=== PATIENT | male | born 1965 | race Caucasian/White ===

== ENCOUNTER 2016-09-27 18:41 | Inpatient (IN) | payer MEDICARE, MEDICAID ==
[~2016-09-27] VITALS: Ht 170.2 cm; Wt 82.5 kg
[~2016-09-27 18:41] MED LIST: /LANS30GR; /THIA10TA; /TIOT18INH; ADV250INH INH; ADV500INH INH; ADVAIR; ADVAIR500 INHALATION; ALBU17IN INH; ALBU17IN2; ALBU17IN2 INH; ALBUTEROL INHALATION; AMO500 PO; ATENOL25 PO; ATOR1TAB19 PO; CELE100C; CLAR1TAB2 PO; CLAR5CHW; CLON-412 PO; CLONI1TA PO; COMBAER6 INH; DEPA1TAB3 PO; DEPA500T; DILAN100 PO; DIVA500T3 PO; DOCU10CA PO; DULC5TAB PO; DULE200A INH; DULO20CA; FOLI1TAB; FOLI1TAB2 PO; KLON0.5T; KLON1TAB; LAMI200T3 PO; LAMI25TA PO; LIPI20TA; LIPI20TA PO; LISI10TA4 PO; MULTLIQ7 PO; MYLATAB PO; NICO21PAT TD; NORC7.5T PO; OMEP40CA2 PO; OXAZ30CA2 PO; PHENERGA25 PO; PREV30CA11 PO; PREVACID30 PO; PRIL20CA PO; PROA1AER INH; SING10TA31; SING10TA32 PO; SYMB16INH INH; TAB-TAB PO; TENO50TA; THIA50CA PO; TIOT18INH INH; TRAZ50TA4 PO; TRAZO50TA PO; VICODIN PO; VICODIN-ES PO; VITA100T60 PO; XOPENEX63 NEB; ZEST1TAB6 PO; ZOCOR20 PO; ZOCOR40 PO; ZYPR10TA PO; clarinex
[2016-09-27 19:43] LABS: MEAN CORPUSCULAR HEMOGLOBIN 34.9 pg (27.0-33.0); MEAN CORPUSCULAR HGB CONC 34.8 g/dl (32.0-36.5); MEAN CORPUSCULAR VOLUME 100.5 fl (80.0-96.0); RED CELL DISTRIBUTION WIDTH 12.4 % (11.5-14.5); WHITE BLOOD COUNT 9.6 K/mm3 (4.0-10.0)
[2016-09-27 20:00] LABS: AMPHETAMINES LEVEL URINE NEGATIVE (NEGATIVE); BENZODIAZEPINES URINE NEGATIVE (NEGATIVE); COCAINE METABOLITE URINE NEGATIVE (NEGATIVE); CONTROL LINE INT CTR LINE PRESENT; METHADONE URINE NEGATIVE (NEGATIVE); OPIATES URINE NEGATIVE (NEGATIVE); TRICYCLIC ANTIDEPRESS URINE NEGATIVE (NEGATIVE)
[2016-09-27 20:11] LABS: ALBUMIN 3.6 GM/DL (3.2-5.2); ALBUMIN/GLOBULIN RATIO 1.09 (1.00-1.93); ALKALINE PHOSPHATASE 93 U/L (45-117); ALT/SGPT 20 U/L (12-78); ANION GAP 10 MEQ/L (8-16); AST/SGOT 13 U/L (15-37); BILIRUBIN,DIRECT < 0.1 MG/DL (0.0-0.2); BILIRUBIN,TOTAL 0.2 MG/DL (0.2-1.0); BLOOD UREA NITROGEN 12 MG/DL (7-18); CALCIUM LEVEL 8.4 MG/DL (8.5-10.1); CARBON DIOXIDE LEVEL 25 MEQ/L (21-32); CHLORIDE LEVEL 109 MEQ/L (98-107); CREATININE FOR GFR 0.83 MG/DL (0.70-1.30); GLOMERULAR FILTRATION RATE > 60.0 (>56); GLUCOSE, FASTING 95 MG/DL (70-105); POTASSIUM SERUM 4.4 MEQ/L (3.5-5.1); SODIUM LEVEL 144 MEQ/L (136-145); TOTAL PROTEIN 6.9 GM/DL (6.4-8.2)
[2016-09-28] MEDS ORDERED: ACETAMINOPHEN 325 MG TAB As Ordered ONE ×2 (04:09→04:12)
[2016-09-28] MEDS ORDERED: LORazepam 2 MG TAB PO PRN (04:15)
[2016-09-28] MEDS ORDERED: MAALOX 30 ML SUSP *UDC PO PRN (04:15)
[2016-09-28] MEDS ORDERED: MOM 30ML SUSPENSION UDC PO PRN (04:15)
--- NOTE | 2016-09-28 04:46 | EDDOCDS ---
Physician Documentation [facility] Name: Darrick Graves Age: 51 yrs Sex: Male : 1965 Arrival Date: 09/27/2016 Time: 18:41 Bed OBSERVATION Private MD: Disposition: 09/28/16 04:44 Hospitalization ordered by Russel Sloan for Inpatient Admission. Preliminary diagnosis is Major depressive disorder, single episode. - Bed requested for Admit. - Status is Inpatient Admission. slm - Condition is Stable. - Problem is an ongoing problem. - Symptoms are unchanged. Historical: - Allergies: Aspirin (severe cramps); bupropion HCl (Seizures); Codeine Sulfate (Upset stomach); GABAPENTIN (passes out); Remeron (n/v); Rofecoxib; Toradol (diarrhea); Ultram (Seizures); - Home Meds: 1. lisinopril 10 mg Oral tab 1 tab once daily 2. clonidine HCl 0.1 mg Oral tab 1 tab 3 times per day 3. Depakote 500 mg Oral TbEC 1 tab 2 times per day 4. montelukast 10 mg oral tab 1 tab once daily 5. Claritin 10 mg Oral tab 1 tab once daily 6. Prilosec 20 mg Oral cpDR 2 caps once daily 7. atorvastatin 10 mg oral tab 1 tab once daily 8. dulera 200 mcg/5mcg 2 puff twice a day 9. Lamictal 25 mg Oral tab daily 10. Trazodone Oral 1 tab once daily - PMHx: Allergies, Seasonal; Anxiety; Asthma; Bipolar disorder; chronic neck and back pain; COPD; Depression; Hypertension; Seizure Disorder; - PSHx: Cholecystectomy; left tib fib repair; - Social history: Smoking status: Patient uses tobacco products, heavy tobacco smoker. No barriers to communication noted, The patient speaks fluent Albanian, Speaks appropriately for age. - Family history: Not pertinent. - : The pt / caregiver states he / she is not on anticoagulants. Home medication list is obtained from the patient. - Exposure Risk Screening:: None identified. Vital Signs: 09/27 19:00 Weight 82.55 kg / 181.99 lbs; Height 5 ft. 7 in. (170.18 cm); pml 20:02 BP 101 / 58; Pulse 79; Resp 18; Temp 96.6(O); Pulse Ox 97% on R/A; Pain 5/10; mdr 09/28 04:07 BP 144 / 67; Pulse 73; Resp 18; Temp 97.1; Pulse Ox 97% ; Pain 8/10; slm 09/27 19:00 Body Mass Index 28.50 (82.55 kg, 170.18 cm) pml MDM: 09/27 18:57 Consult PFS/PSA/Sociology Teacher ordered. cs11 19:17 Consult PFS/PSA/Sociology Teacher: Patient's case requires discussion with on-call cs11 Psychiatrist ordered. 19:17 PSA/PFS to call Nursing Code Enforcement Officer, to enter patient data on [place] Safe Act if patient cs11 involuntarily admitted or transferred for SI or HI ordered. 19:17 Confirm accurate psychiatric medication list and times of last dosage ordered. cs11 19:17 Detain Pt Until Medically/PFS Cleared ordered. cs11 19:18 Acetaminophen Level Ordered. EDMS 19:18 Basic Metabolic Profile Ordered. EDMS 19:18 Complete Blood Count Ordered. EDMS 19:18 Drug Eval Toxicology ED Only Ordered. EDMS 19:18 Ethyl Alcohol (ethanol) Ordered. EDMS 19:18 Liver Profile Ordered. EDMS 19:18 Salicylate Level Ordered. EDMS 19:18 Thyroid Stimulating Hormone Ordered. EDMS 19:18 Ammonia (Little Green Tube on Ice, Not Pea Green) Ordered. EDMS 19:40 VALPROIC ACID (DEPAKOTE) Ordered. EDMS 19:57 Consult PFS/PSA/Sociology Teacher complete. 20:00 Financial registration complete. [email or web address] 20:01 [facility] Payment Agreement was scanned into [employer] and attached to record. [facility] 09/28 00:53 Acetaminophen Level Reviewed. cs11 00:53 Basic Metabolic Profile Reviewed. cs11 00:53 Complete Blood Count Reviewed. cs11 00:53 Drug Eval Toxicology ED Only Reviewed. cs11 00:53 Ethyl Alcohol (ethanol) Reviewed. cs11 00:53 Liver Profile Reviewed. cs11 00:53 Ammonia (Little Green Tube on Ice, Not Pea Green) Reviewed. cs11 00:53 VALPROIC ACID (DEPAKOTE) Reviewed. cs11 00:53 Salicylate Level Reviewed. cs11 00:53 Thyroid Stimulating Hormone Reviewed. cs11 04:05 Tylenol 975 mg PO once ordered. m 04:12 Consult PFS/PSA/Sociology Teacher: Patient's case requires discussion with on-call cl Psychiatrist complete. 04:12 PSA/PFS to call Nursing Code Enforcement Officer, to enter patient data [place] Safe Act if patient cl involuntarily admitted or transferred for SI or HI complete. 04:17 Admit to IM: ordered. EDMS 04:18 REGULAR DIET ordered. EDMS 04:32 [facility] Legal paperwork was scanned into [employer] and attached to record. cl 04:44 BED REQUEST+ADM ordered. EDMS Administered Medications: 04:14 Drug: Tylenol 975 mg Route: PO; slm Signatures: Dispatcher [employer] EDMS Javid Contreras, MEAGAN PSA cl Darline Schreiber,RN RN Ronny Landaverde, DO cs11 Megan Blancas LPN LPN [facility] Asuncion Garcia, Reg Reg [email or web address] The chart was reviewed and I authenticate all verbal orders and agree with the evaluation and treatment provided.Corrections: (The following items were deleted from the chart) 09/27 19:39 19:18 VALPROIC ACID (DEPAKOTE)+LAB ordered. EDMS EDMS Attachments: 20:01 [facility] Payment Agreement [email or web address] MTDD
--- NOTE | 2016-09-28 04:47 | EDDOCDS ---
Nurse's Notes [facility] Name: Darrick Graves Age: 51 yrs Sex: Male : 1965 Arrival Date: 09/27/2016 Time: 18:41 Bed OBSERVATION Private MD: Diagnosis: Major depressive disorder, single episode Presentation: 09/27 18:57 Presenting complaint: Patient states: "I want to kill myself" states SI with plan to OD pml on blood pressure meds. Mental Health Triage Level: Level 2: The patient displays active suicidal ideations. The patient was brought to the ED for evaluation because of a legal pickup order. Adult Sepsis Screening: The patient does not have new or worsening altered mentation. Patient's respiratory rate is less than 22. Systolic blood pressure is greater than 100. Patient has a qSOFA score of 0- Negative Sepsis Screen. Suicide/Homicide risk assessment- The patient admits to and/or has been reported to be having suicidal ideations. The patient reports that he/she has been admitted to an inpatient mental health facility in the last 30 days. The patient reports that he/she has a recent or current history of substance abuse. The patient reports that he/she has a prior history of suicide attempt and/or organized plan. The patient reports that he/she has experienced a significant life altering event in the last 30 days. The patient reports that he/she has adequate social support. The patient reports he/she has significant chronic medical condition(s). Status: Patient is not a floor service worker spring or dependent. Transition of care: patient was not received from another setting of care. 18:57 Acuity: HOANG Level 3 pml 18:57 Method Of Arrival: Ambulance pml Triage Assessment: 19:00 General: Appears in no apparent distress, Behavior is appropriate for age, cooperative. pml Pain: Location: left leg. HIV screening NA for this visit Offered previously. The patient is triaged at the bedside. See Assessment in Nurses Notes section of ED record. Neurological: Level of Consciousness is awake, alert, Oriented to person, place, time. Cardiovascular: Capillary refill < 3 seconds. Respiratory: Airway is patent Respiratory effort is even, unlabored. GI: Abdomen is non- distended obese. Derm: Skin is pink, warm & dry. Historical: - Allergies: Aspirin (severe cramps); bupropion HCl (Seizures); Codeine Sulfate (Upset stomach); GABAPENTIN (passes out); Remeron (n/v); Rofecoxib; Toradol (diarrhea); Ultram (Seizures); - Home Meds: 1. lisinopril 10 mg Oral tab 1 tab once daily 2. clonidine HCl 0.1 mg Oral tab 1 tab 3 times per day 3. Depakote 500 mg Oral TbEC 1 tab 2 times per day 4. montelukast 10 mg oral tab 1 tab once daily 5. Claritin 10 mg Oral tab 1 tab once daily 6. Prilosec 20 mg Oral cpDR 2 caps once daily 7. atorvastatin 10 mg oral tab 1 tab once daily 8. dulera 200 mcg/5mcg 2 puff twice a day 9. Lamictal 25 mg Oral tab daily 10. Trazodone Oral 1 tab once daily - PMHx: Allergies, Seasonal; Anxiety; Asthma; Bipolar disorder; chronic neck and back pain; COPD; Depression; Hypertension; Seizure Disorder; - PSHx: Cholecystectomy; left tib fib repair; - Social history: Smoking status: Patient uses tobacco products, heavy tobacco smoker. No barriers to communication noted, The patient speaks fluent Wolof, Speaks appropriately for age. - Family history: Not pertinent. - : The pt / caregiver states he / she is not on anticoagulants. Home medication list is obtained from the patient. - Exposure Risk Screening:: None identified. Screenin:49 Screening information is obtained from the patient. Fall risk: At risk due to gait slm disturbance. Assistance ADL's: requires no assistance with activities of daily living. Abuse/DV Screen: The patient / caregiver reports he/she is: not in a situation that causes fear, pain or injury. Nutritional screening: No deficits noted. home support is inadequate. 09/28 04:34 Fall risk: The following interventions are performed due to a positive Fall Risk slm Screen: Fall Risk is added to Special Handling on the patient Summary Screen. A Fall Risk Bracelet was applied to the patient. Side Rails are placed in the up position. A Call Arnold is given with instruction to call for help when getting out of bed. Advance Directives: Currently, there is no health care proxy. There is no active DNR order. There is no living will. There is no Power of Manager Of Compliance. Advance directive information has not previously been placed in an [facility] medical record. Further advance directive information is declined. Assessment: 09/27 19:48 General: Appears in no apparent distress, comfortable, Behavior is anxious. General: pt slm resting on stretcher anxious at time cast intact to left lower leg . Respiratory: Airway is patent Respiratory effort is even, unlabored. 20:31 General: Appears in no apparent distress, comfortable, Behavior is cooperative. slm General: pt resting on stretcher with eyes closed security observing safety maintained . Respiratory: Airway is patent Respiratory effort is even, unlabored. Derm: Skin is pink, warm & dry. 21:30 General: Appears in no apparent distress, comfortable, to be sleeping. Behavior is slm quiet. General: resting on stretcher security observing . Respiratory: Airway is patent Respiratory effort is even, unlabored. 22:12 General: Appears in no apparent distress, comfortable, to be sleeping. Behavior is slm cooperative. General: pt resting on stretcher safety maintained . Respiratory: Airway is patent Respiratory effort is even, unlabored. Derm: Skin is pink, warm & dry. 23:23 General: Appears in no apparent distress, comfortable, to be sleeping. Behavior is slm quiet. General: resting on stretcher security observing . Respiratory: No deficits noted. 09/28 00:15 General: Appears in no apparent distress, comfortable, to be sleeping. Behavior is slm quiet. General: pt resting on stretcher asleep security observing safety maintained . Respiratory: Airway is patent Respiratory effort is even, unlabored. 01:20 General: Appears in no apparent distress, comfortable, Behavior is cooperative. slm General: pt resting on stretcher awake at this time calm drinking fluids denies needs security observing . Neurological: Level of Consciousness is awake, alert, obeys commands. 01:58 General: Appears in no apparent distress, comfortable, to be sleeping. Behavior is slm cooperative, quiet. General: resting on stretcher security observing . Respiratory: Airway is patent Respiratory effort is even, unlabored. 03:00 General: Appears in no apparent distress, comfortable, to be sleeping. Behavior is slm cooperative. General: security observing . Respiratory: Airway is patent Respiratory effort is even, unlabored. Derm: Skin is pink, warm & dry. 04:05 General: Appears in no apparent distress, comfortable, Behavior is cooperative. slm General: pt resting on stretcher request box lunch c/o pain left leg 05/08 pain meds provided will cont to monitor pts pain . Pain: Location: left leg Pain currently is 8 out of 10 on a pain scale. Neurological: Level of Consciousness is awake, alert, obeys commands, Oriented to person, place, time. Respiratory: Airway is patent Respiratory effort is even, unlabored. Derm: Skin is pink, warm & dry. 04:34 Reassessment: Patient appears in no apparent distress at this time. General: Behavior slm is cooperative. Respiratory: Airway is patent Respiratory effort is even, unlabored. Mental Health Eval: 02:49 Status: The patient is not a floor service worker spring or dependent. [facility] cl Behavioral Health: The patient is not an established patient of [facility] Behavioral Health. Referral Information: Evaluation referral is generated by a police agency: [place]ICO[place] on .. The patient was referred for evaluation because [facility] ED issued after pt called ED stating SI with plan to OD.. Subjective: The patients chief complaint is Pt is A&Ox3, clinically sober, reports feeling increasingly depressed in past weeks due to several family deaths recently as well as cast on leg due to recent fx. Pt c/o inability to "do anything", "I can't go out, can't cook, can't do anything and I just want to end it". Pt well known from prior ED contacts and psych admissions, pt denies HI/AH/VH, has hx of substance abuse, was intoxicated on arrival to ED last evening. Pt in no current outpt tx, states "I have appt.'s in September" though is vague about this, has hx of non-compliance as well. Pt continues to voice SI with plan to take overdose, cannot CFS at this time. . Delusions are denied. Patient's mood is dysthymic, irritable, Hallucinations are denied. Mental Health history: alcohol abuse, Bipolar Disorder, depression, abusing prescription drugs. marijuana. suicide attempt by by OD in past. Mental Health Admissions: multiple to [facility], last 09/05/16. Current Outpatient Mental Health Services: None. Current living environment is The patient currently lives alone. The patient is . Patient presents to Emergency Department with the following symptoms within the past 2 weeks: alcohol abuse, depressed mood, feelings of helplessness/hopelessness, non-compliance, pain, acute, sleep disturbance - erratic suicidal ideation with plan for pills. Mental status exam: Patients appearance is disheveled Patient's behavior is superficially cooperative Speech is normal. Affect is restricted. Mood is dysphoric. irritable. Hallucinations are denied. Appetite is erratic Memory is fair. Energy level is tires easily. Content of thought is depressive. depressive Thought process is intact. Cognitive level is oriented to person, place, time and situation Patient's insight is fair. Judgement is fair. Rapport with interviewer is guarded. Suicidal Ideation present with a plan to kill self by pills. Homicidal ideation is not present. 04:06 Disposition: Medically cleared for disposition by Ronny Yo DO Psychiatric Consult cl is performed by phone with Dr Russel Sloan. 04:09 [facility] Admission Criteria: The patient is experiencing suicidal ideation. The patient cl displays symptoms of severe psychiatric disorder resulting in disordered behavior and significant interference with his / her ability to maintain self care. Psychomotor Retardation. The patient requires continuous observation and/or control to protect self, others or property. The patient's care requires a multi-modal treatment plan under close supervision and coordination due to the complexity and severity of the patient's symptoms. Legal Status: Patient's legal status will be Emergency admission: 9.39. [place] because patient was registered less than 6 months ago. DSM-V Differential Diagnosis: Unspecified Depressive Disorder (F32.9). Insurance Pre-Certification: Not Required. Family Notification: Notification to family of patient status is not currently needed or appropriate. Awaiting: transfer to [facility]. Social Work Consult: 09/27 18:51 Social Work Note: Pt called this copywriter on our main line, at 17:20. Pt reported cs drinking, has a History of suicide attempts, "had nothing to live for, had been drinking today, nobody cares if he is alive, wants to , plan OD on Depakote and high blood pressure medications, If my sister had not taken my guns, I would be using one of them right now, broke my ankle, can't do anything for 4 months, want live this way, I am , my whole family has on me the past 7 years, My Gladys January 09 2013, my love of my life, I don't want to live without her anymore, helpless and hopeless, I want to " then hung up on this copywriter at 17:45, after giving me his name and age. PSA had help to call 911 , issued a 9:45 filler pick[address] order with Dr. Ricks , pt presented on the phone tearful and intoxicated, presented to ED with NICOLE Navarro, #[id number]. Vital Signs: 19:00 Weight 82.55 kg; Height 5 ft. 7 in. (170.18 cm); pml 20:02 BP 101 / 58; Pulse 79; Resp 18; Temp 96.6(O); Pulse Ox 97% on R/A; Pain 5/10; mdr 09/28 04:07 BP 144 / 67; Pulse 73; Resp 18; Temp 97.1; Pulse Ox 97% ; Pain 8/10; slm 09/27 19:00 Body Mass Index 28.50 (82.55 kg, 170.18 cm) [facility] Vitals: 09/27 19:00 Log In Time N/A - ambulance arrival. [facility] ED Course: 18:42 Patient visited by Almita Galvez. gjb 18:42 Patient moved to Waiting gjb 18:48 Patient moved to [facility] pjf 18:56 Pt greeted and oriented to ED. Patient advised of names of staff involved in care, pjf location of call arnold, wait times and NPO status. Accompanied by Law Enforcement, nicole - (9.45), Patient has correct armband on for positive identification. Placed in psych safe attire. Bed in low position. Call light in reach. Side rails up X 1. Security observing. Property removed, secured in belongings bag- Placed in locker #3. Door closed. Noise minimized. Visitors limited. Report received from rn - psych. triage level #2, +si, +etoh, agitated, cooperative \\T\\ this time. The patient / caregiver is instructed regarding the plan of care and ED course. Psych Safety Check: Location: Psych Room. 18:57 Ronny Yo DO is Attending Physician. cs11 18:57 Patient visited by Ronny Yo DO. cs11 18:58 Triage Initiated pml 19:01 Patient visited by Frank Fontanez Security Aide. pjf 19:17 Patient moved to OBSERVATION cs 19:25 Patient visited by Heath Traylor PCA. mdr 19:48 Megan Blancas LPN is Primary Nurse. slm 19:49 Patient visited by Heath Traylor PCA. mdr 19:50 No IV's were initiated during this patient's visit. No procedures done that require slm assistance. Labs drawn. (by ED staff). Sent per order to lab. Urine collected. Urine specimen sent to lab. 19:57 VALPROIC ACID (DEPAKOTE) Sent. slm 20:01 [facility] Payment Agreement was scanned into [employer] and attached to record. ks16 20:03 Patient visited by Heath Traylor PCA. mdr 20:23 Patient visited by Heath Traylor PCA. mdr 20:31 Patient visited by Heath Traylor PCA. mdr 20:35 Patient visited by Megan Blancas LPN. slm 22:03 Patient visited by Megan Blancas LPN. slm 22:13 Patient visited by Megan Blancas LPN. slm 22:23 Patient visited by Heath Traylor PCA. mdr 22:42 Patient visited by Heath Traylor PCA. mdr 23:24 Patient visited by Megan Blancas LPN. slm 09/28 00:16 Patient visited by Megan Blancas LPN. slm 01:21 Patient visited by Megan Blancas LPN. slm 01:59 Patient visited by Megan Blancas LPN. slm 03:55 Patient visited by Megan Blancas LPN. slm 04:32 [facility] Legal paperwork was scanned into [employer] and attached to record. cl 04:35 Patient visited by Megan Blancas LPN. slm 04:43 Russel Sloan is Hospitalizing Provider. cs11 Administered Medications: 04:14 Drug: Tylenol 975 mg Route: PO; slm Attachments: 09/28 04:32 [facility] Legal paperwork cl Order Results: Lab Order: Acetaminophen Level; SPEC'M 09/27/16 19:32 Test: ACETAMINOPHEN LEVEL; Value: < 2.0; Range: 10.0-30.0; Abnormal: Below low normal; Units: UG/ML; Status: F Lab Order: Basic Metabolic Profile; SPEC'M 09/27/16 19:32 Test: GLUCOSE, FASTING; Value: 95; Range: 70-105; Units: MG/DL; Status: F Test: BLOOD UREA NITROGEN; Value: 12; Range: 7-18; Units: MG/DL; Status: F Test: CREATININE FOR GFR; Value: 0.83; Range: 0.70-1.30; Units: MG/DL; Status: F Test: GLOMERULAR FILTRATION RATE; Value: > 60.0; Range: >56; Status: F Test: SODIUM LEVEL; Value: 144; Range: 136-145; Units: MEQ/L; Status: F Test: POTASSIUM SERUM; Value: 4.4; Range: 3.5-5.1; Units: MEQ/L; Status: F Test: CHLORIDE LEVEL; Value: 109; Range: 98-107; Abnormal: Above high normal; Units: MEQ/L; Status: F Test: CARBON DIOXIDE LEVEL; Value: 25; Range: 21-32; Units: MEQ/L; Status: F Test: ANION GAP; Value: 10; Range: 8-16; Units: MEQ/L; Status: F Test: CALCIUM LEVEL; Value: 8.4; Range: 8.5-10.1; Abnormal: Below low normal; Units: MG/DL; Status: F Test Note: ; Units are mL/min/1.73 m2 Chronic Kidney Disease Staging per NKF: Stage I & II GFR >=60 Normal to Mildly Decreased Stage III GFR 30-59 Moderately Decreased Stage IV GFR 15-29 Severely Decreased Stage V GFR <15 Very Little GFR Left ESRD GFR <15 on BATH STEWARD/STEWARDESS Lab Order: Complete Blood Count; SPEC'M 09/27/16 19:32 Test: WHITE BLOOD COUNT; Value: 9.6; Range: 4.0-10.0; Units: K/mm3; Status: F Test: RED BLOOD COUNT; Value: 4.37; Range: 4.30-6.10; Units: M/mm3; Status: F Test: HEMOGLOBIN; Value: 15.3; Range: 14.0-18.0; Units: g/dl; Status: F Test: HEMATOCRIT; Value: 43.9; Range: 42.0-52.0; Units: %; Status: F Test: MEAN CORPUSCULAR VOLUME; Value: 100.5; Range: 80.0-96.0; Abnormal: Above high normal; Units: fl; Status: F Test: MEAN CORPUSCULAR HEMOGLOBIN; Value: 34.9; Range: 27.0-33.0; Abnormal: Above high normal; Units: pg; Status: F Test: MEAN CORPUSCULAR HGB CONC; Value: 34.8; Range: 32.0-36.5; Units: g/dl; Status: F Test: RED CELL DISTRIBUTION WIDTH; Value: 12.4; Range: 11.5-14.5; Units: %; Status: F Test: PLATELET COUNT, AUTOMATED; Value: 283; Range: 150-450; Units: k/mm3; Status: F Lab Order: Drug Eval Toxicology ED Only; SPEC'M 09/27/16 19:32 Test: AMPHETAMINES LEVEL URINE; Value: NEGATIVE; Range: NEGATIVE; Status: F Test: BARBITURATES URINE; Value: NEGATIVE; Range: NEGATIVE; Status: F Test: BENZODIAZEPINES URINE; Value: NEGATIVE; Range: NEGATIVE; Status: F Test: CANNABINOIDS URINE; Value: POSITIVE; Range: NEGATIVE; Abnormal: Above high normal; Status: F Test: COCAINE METABOLITE URINE; Value: NEGATIVE; Range: NEGATIVE; Status: F Test: METHADONE URINE; Value: NEGATIVE; Range: NEGATIVE; Status: F Test: OPIATES URINE; Value: NEGATIVE; Range: NEGATIVE; Status: F Test: TRICYCLIC ANTIDEPRESS URINE; Value: NEGATIVE; Range: NEGATIVE; Status: F Test Note: ; FALSE POSITIVE RESULTS CAN BE CAUSED BY THE USE OF PANTOPRAZOLE (PROTONIX). Lab Order: Ethyl Alcohol (ethanol); SPEC'M 09/27/16 19:32 Test: ETHYL ALCOHOL (ETHANOL); Value: 0.220; Range: 0.000-0.010; Abnormal: Above high normal; Units: %; Status: F Lab Order: Liver Profile; SPEC'M 09/27/16 19:32 Test: AST/SGOT; Value: 13; Range: 15-37; Abnormal: Below low normal; Units: U/L; Status: F Test: ALT/SGPT; Value: 20; Range: 12-78; Units: U/L; Status: F Test: ALKALINE PHOSPHATASE; Value: 93; Range: 45-117; Units: U/L; Status: F Test: BILIRUBIN,TOTAL; Value: 0.2; Range: 0.2-1.0; Units: MG/DL; Status: F Test: BILIRUBIN,DIRECT; Value: < 0.1; Range: 0.0-0.2; Units: MG/DL; Status: F Test: TOTAL PROTEIN; Value: 6.9; Range: 6.4-8.2; Units: GM/DL; Status: F Test: ALBUMIN; Value: 3.6; Range: 3.2-5.2; Units: GM/DL; Status: F Test: ALBUMIN/GLOBULIN RATIO; Value: 1.09; Range: 1.00-1.93; Status: F Lab Order: Salicylate Level; SPEC'M 09/27/16 19:32 Test: SALICYLATE LEVEL; Value: 5.3; Range: 5.0-30.0; Units: MG/DL; Status: F Lab Order: Thyroid Stimulating Hormone; SPEC' 09/27/16 19:32 Test: THYROID STIMULATING HORMONE; Value: 0.648; Range: 0.358-3.740; Units: uIU/ML; Status: F Lab Order: Ammonia ([place] Tube on Ice, Not [place]); SPEC'M 09/27/16 19:32 Test: AMMONIA; Value: 45; Range: <32; Abnormal: Above high normal; Units: uMOL/L; Status: F Lab Order: VALPROIC ACID (DEPAKOTE); SPEC'M 09/27/16 19:32 Test: VALPROIC ACID (DEPAKOTE); Value: 38.5; Range: 50.0-100.0; Abnormal: Below low normal; Units: UG/ML; Status: F Outcome: 09/27 20:34 No special radiology studies were completed. [facility] 09/28 04:34 Discharge Assessment: Patient awake, alert and oriented x 3. No cognitive and/or m functional deficits noted. Patient verbalized understanding of disposition instructions. patient administered narcotics - no. The following High Risk Discharge criteria are identified: None. Admitted to Psych accompanied by tech, via wheelchair, with chart. Condition: stable. 04:44 Decision to Hospitalize by Provider. cs11 04:45 Patient left the ED. [facility] Signatures: Javid Contreras PSA PSA Maged Stearns PSA PSA Frank Allen, Darline Clifton,RN RN Ronny Landaverde, DO cs11 Megan Blancas,ANDREA ALMEIDAN slm Heath Traylor, [facility] RESPIRATORY THERAPY MANAGER Almita Urbano Kimberly, Reg Reg [id number] MTDD
[2016-09-28 05:03] VITALS: BP 156/79
[2016-09-28] MEDS ORDERED: TRAZ50TA4 PO (05:26)
[2016-09-28] MEDS ORDERED: HYDR1TAB97 PO (05:26)
[2016-09-28] MEDS ORDERED: DEPA1TAB3 PO (05:26)
[2016-09-28] MEDS ORDERED: CLAR10CA3 PO (05:26)
[2016-09-28] MEDS ORDERED: LAMI25TA PO (05:26)
[2016-09-28] MEDS: THIAMINE 100 MG TAB PO SCH ×2 (09:52→20:36)
[2016-09-28] MEDS: NICOTINE 21MG/24HR 1 EA TRANSDERMAL TD SCH (09:52)
[2016-09-28] MEDS: MULTIVITAMINS/MINERALS THERAP 1 TAB PO SCH (09:52)
[2016-09-28] MEDS: FOLIC ACID 1 MG TAB PO SCH (09:52)
[2016-09-28] MEDS: DIVALPROEX 500MG *ER* TAB PO SCH ×2 (10:53→20:36)
[2016-09-28] MEDS: FLUoxetine 10 MG CAP PO SCH (10:53)
[2016-09-28] MEDS: lamoTRIgine 25 MG TAB PO SCH ×2 (10:54→20:36)
[2016-09-28 11:03] VITALS: BP 147/72
[2016-09-28 12:30] VITALS: BP 142/72
[2016-09-28 18:00] VITALS: BP 132/82
[2016-09-28] MEDS: traZODone 50 MG TAB PO PRN (20:36)
[2016-09-28] MEDS: hydrOXYzine 50 MG TAB PO PRN (20:36)
[2016-09-29 06:25] VITALS: BP 153/94
[2016-09-29] MEDS: MULTIVITAMINS/MINERALS THERAP 1 TAB PO SCH (08:55)
[2016-09-29] MEDS: lamoTRIgine 25 MG TAB PO SCH ×2 (08:55→20:01)
[2016-09-29] MEDS: DIVALPROEX 500MG *ER* TAB PO SCH ×2 (08:55→20:01)
[2016-09-29] MEDS: NICOTINE 21MG/24HR 1 EA TRANSDERMAL TD SCH (08:55)
[2016-09-29] MEDS: FOLIC ACID 1 MG TAB PO SCH (08:55)
[2016-09-29] MEDS: FLUoxetine 10 MG CAP PO SCH (08:55)
[2016-09-29] MEDS: THIAMINE 100 MG TAB PO SCH ×2 (08:55→20:01)
[2016-09-29 11:35] VITALS: BP 132/86
[2016-09-29 12:00] VITALS: BP 132/86
[2016-09-29] MEDS: LISINOPRIL 10 MG TAB PO SCH (12:06)
[2016-09-29] MEDS: MONTELUKAST 10 MG TAB PO SCH (12:06)
[2016-09-29] MEDS: cloNIDine 0.1 MG TAB PO SCH ×3 (12:06→20:01)
[2016-09-29] MEDS: NORCO, ANEXSIA 5/325MG TABLET (HYDROcodone/ACETAMINOPHEN) PO PRN ×2 (14:20→20:03)
[2016-09-29 16:20] VITALS: BP 133/76
[2016-09-29 18:00] VITALS: BP 132/76
[2016-09-29 20:00] VITALS: BP 131/73
[2016-09-29] MEDS ORDERED: ALBUTEROL 90 MCG/ACT 8GM HFA INHALER INH PRN (20:00)
[2016-09-29] MEDS: ADVAIR HFA 115/21 INHALER INH SCH (20:01)
[2016-09-29] MEDS: ATORVASTATIN 10 MG TAB PO SCH (22:09)
[2016-09-30] MEDS: traZODone 50 MG TAB PO PRN
[2016-09-30] MEDS: NORCO, ANEXSIA 5/325MG TABLET (HYDROcodone/ACETAMINOPHEN) PO PRN ×5 (05:14→23:23)
--- NOTE | 2016-09-30 05:46 | EDDOCDS ---
Physician Documentation [facility] Name: Darrick Graves Age: 51 yrs Sex: Male : 1965 Arrival Date: 09/27/2016 Time: 18:41 Bed OBSERVATION Private MD: Disposition: 09/28/16 04:44 Hospitalization ordered by Russel Sloan for Inpatient Admission. Preliminary diagnosis is Major depressive disorder, single episode. - Bed requested for Admit. - Status is Inpatient Admission. slm - Condition is Stable. - Problem is an ongoing problem. - Symptoms are unchanged. Historical: - Allergies: Aspirin (severe cramps); bupropion HCl (Seizures); Codeine Sulfate (Upset stomach); GABAPENTIN (passes out); Remeron (n/v); Rofecoxib; Toradol (diarrhea); Ultram (Seizures); - Home Meds: 1. lisinopril 10 mg Oral tab 1 tab once daily 2. clonidine HCl 0.1 mg Oral tab 1 tab 3 times per day 3. Depakote 500 mg Oral TbEC 1 tab 2 times per day 4. montelukast 10 mg oral tab 1 tab once daily 5. Claritin 10 mg Oral tab 1 tab once daily 6. Prilosec 20 mg Oral cpDR 2 caps once daily 7. atorvastatin 10 mg oral tab 1 tab once daily 8. dulera 200 mcg/5mcg 2 puff twice a day 9. Lamictal 25 mg Oral tab daily 10. Trazodone Oral 1 tab once daily - PMHx: Allergies, Seasonal; Anxiety; Asthma; Bipolar disorder; chronic neck and back pain; COPD; Depression; Hypertension; Seizure Disorder; - PSHx: Cholecystectomy; left tib fib repair; - Social history: Smoking status: Patient uses tobacco products, heavy tobacco smoker. No barriers to communication noted, The patient speaks fluent Czech, Speaks appropriately for age. - Family history: Not pertinent. - : The pt / caregiver states he / she is not on anticoagulants. Home medication list is obtained from the patient. - Exposure Risk Screening:: None identified. Vital Signs: 09/27 19:00 Weight 82.55 kg / 181.99 lbs; Height 5 ft. 7 in. (170.18 cm); pml 20:02 BP 101 / 58; Pulse 79; Resp 18; Temp 96.6(O); Pulse Ox 97% on R/A; Pain 5/10; mdr 09/28 04:07 BP 144 / 67; Pulse 73; Resp 18; Temp 97.1; Pulse Ox 97% ; Pain 8/10; slm 09/27 19:00 Body Mass Index 28.50 (82.55 kg, 170.18 cm) pml MDM: 09/27 18:57 Consult PFS/PSA/Dividend Deposit Voucher Clerk ordered. cs11 19:17 Consult PFS/PSA/Dividend Deposit Voucher Clerk: Patient's case requires discussion with on-call cs11 Psychiatrist ordered. 19:17 PSA/PFS to call Nursing Utility Technician, to enter patient data on [place] Safe Act if patient cs11 involuntarily admitted or transferred for SI or HI ordered. 19:17 Confirm accurate psychiatric medication list and times of last dosage ordered. cs11 19:17 Detain Pt Until Medically/PFS Cleared ordered. cs11 19:18 Acetaminophen Level Ordered. EDMS 19:18 Basic Metabolic Profile Ordered. EDMS 19:18 Complete Blood Count Ordered. EDMS 19:18 Drug Eval Toxicology ED Only Ordered. EDMS 19:18 Ethyl Alcohol (ethanol) Ordered. EDMS 19:18 Liver Profile Ordered. EDMS 19:18 Salicylate Level Ordered. EDMS 19:18 Thyroid Stimulating Hormone Ordered. EDMS 19:18 Ammonia (Little Green Tube on Ice, Not Pea Green) Ordered. EDMS 19:40 VALPROIC ACID (DEPAKOTE) Ordered. EDMS 19:57 Consult PFS/PSA/Dividend Deposit Voucher Clerk complete. 20:00 Financial registration complete. [email or web address] 20:01 [facility] Payment Agreement was scanned into [employer] and attached to record. [facility] 09/28 00:53 Acetaminophen Level Reviewed. cs11 00:53 Basic Metabolic Profile Reviewed. cs11 00:53 Complete Blood Count Reviewed. cs11 00:53 Drug Eval Toxicology ED Only Reviewed. cs11 00:53 Ethyl Alcohol (ethanol) Reviewed. cs11 00:53 Liver Profile Reviewed. cs11 00:53 Ammonia (Little Green Tube on Ice, Not Pea Green) Reviewed. cs11 00:53 VALPROIC ACID (DEPAKOTE) Reviewed. cs11 00:53 Salicylate Level Reviewed. cs11 00:53 Thyroid Stimulating Hormone Reviewed. cs11 04:05 Tylenol 975 mg PO once ordered. m 04:12 Consult PFS/PSA/Dividend Deposit Voucher Clerk: Patient's case requires discussion with on-call cl Psychiatrist complete. 04:12 PSA/PFS to call Nursing Utility Technician, to enter patient data on [place] Safe Act if patient cl involuntarily admitted or transferred for SI or HI complete. 04:17 Admit to IM: ordered. EDMS 04:18 REGULAR DIET ordered. EDMS 04:32 MHE Legal paperwork was scanned into [employer] and attached to record. cl 04:44 BED REQUEST+ADM ordered. EDMS 08:07 T-Sheet-- Draft Copy was scanned into [employer] and attached to record. seh Administered Medications: 04:14 Drug: Tylenol 975 mg Route: PO; slm Signatures: Dispatcher [employer] EDMS Javid Contreras, MEAGAN PSA cl Darline Schreiber,NIXON RN Ronny Landaverde, DO cs11 Megan Blancas,POULTRY OFFAL ICER POULTRY OFFAL ICER [facility] Asuncion Garcia, Reg Reg [email or web address] Breanne Cottrell [employer] [employer] The chart was reviewed and I authenticate all verbal orders and agree with the evaluation and treatment provided.Corrections: (The following items were deleted from the chart) 09/27 19:39 19:18 VALPROIC ACID (DEPAKOTE)+LAB ordered. EDMS EDMS Attachments: 20:01 [facility] Payment Agreement [email or web address] 08:07 T-Sheet-- Draft Copy [employer] [place] Chart Complete MTDD
--- NOTE | 2016-09-30 05:46 | EDDOCDS ---
Nurse's Notes [facility] Name: Darrick Graves Age: 51 yrs Sex: Male : 1965 Arrival Date: 09/27/2016 Time: 18:41 Bed OBSERVATION Private MD: Diagnosis: Major depressive disorder, single episode Presentation: 09/27 18:57 Presenting complaint: Patient states: "I want to kill myself" states SI with plan to OD pml on blood pressure meds. Mental Health Triage Level: Level 2: The patient displays active suicidal ideations. The patient was brought to the ED for evaluation because of a legal pickup order. Adult Sepsis Screening: The patient does not have new or worsening altered mentation. Patient's respiratory rate is less than 22. Systolic blood pressure is greater than 100. Patient has a qSOFA score of 0- Negative Sepsis Screen. Suicide/Homicide risk assessment- The patient admits to and/or has been reported to be having suicidal ideations. The patient reports that he/she has been admitted to an inpatient mental health facility in the last 30 days. The patient reports that he/she has a recent or current history of substance abuse. The patient reports that he/she has a prior history of suicide attempt and/or organized plan. The patient reports that he/she has experienced a significant life altering event in the last 30 days. The patient reports that he/she has adequate social support. The patient reports he/she has significant chronic medical condition(s). Status: Patient is not a community service officer coordinator or dependent. Transition of care: patient was not received from another setting of care. 18:57 Acuity: HOANG Level 3 pml 18:57 Method Of Arrival: Ambulance pml Triage Assessment: 19:00 General: Appears in no apparent distress, Behavior is appropriate for age, cooperative. pml Pain: Location: left leg. HIV screening NA for this visit Offered previously. The patient is triaged at the bedside. See Assessment in Nurses Notes section of ED record. Neurological: Level of Consciousness is awake, alert, Oriented to person, place, time. Cardiovascular: Capillary refill < 3 seconds. Respiratory: Airway is patent Respiratory effort is even, unlabored. GI: Abdomen is non- distended obese. Derm: Skin is pink, warm & dry. Historical: - Allergies: Aspirin (severe cramps); bupropion HCl (Seizures); Codeine Sulfate (Upset stomach); GABAPENTIN (passes out); Remeron (n/v); Rofecoxib; Toradol (diarrhea); Ultram (Seizures); - Home Meds: 1. lisinopril 10 mg Oral tab 1 tab once daily 2. clonidine HCl 0.1 mg Oral tab 1 tab 3 times per day 3. Depakote 500 mg Oral TbEC 1 tab 2 times per day 4. montelukast 10 mg oral tab 1 tab once daily 5. Claritin 10 mg Oral tab 1 tab once daily 6. Prilosec 20 mg Oral cpDR 2 caps once daily 7. atorvastatin 10 mg oral tab 1 tab once daily 8. dulera 200 mcg/5mcg 2 puff twice a day 9. Lamictal 25 mg Oral tab daily 10. Trazodone Oral 1 tab once daily - PMHx: Allergies, Seasonal; Anxiety; Asthma; Bipolar disorder; chronic neck and back pain; COPD; Depression; Hypertension; Seizure Disorder; - PSHx: Cholecystectomy; left tib fib repair; - Social history: Smoking status: Patient uses tobacco products, heavy tobacco smoker. No barriers to communication noted, The patient speaks fluent Namibian, Speaks appropriately for age. - Family history: Not pertinent. - : The pt / caregiver states he / she is not on anticoagulants. Home medication list is obtained from the patient. - Exposure Risk Screening:: None identified. Screenin:49 Screening information is obtained from the patient. Fall risk: At risk due to gait slm disturbance. Assistance ADL's: requires no assistance with activities of daily living. Abuse/DV Screen: The patient / caregiver reports he/she is: not in a situation that causes fear, pain or injury. Nutritional screening: No deficits noted. home support is inadequate. 09/28 04:34 Fall risk: The following interventions are performed due to a positive Fall Risk slm Screen: Fall Risk is added to Special Handling on the patient Summary Screen. A Fall Risk Bracelet was applied to the patient. Side Rails are placed in the up position. A Call Arnold is given with instruction to call for help when getting out of bed. Advance Directives: Currently, there is no health care proxy. There is no active DNR order. There is no living will. There is no Power of Motor Pool Clerk. Advance directive information has not previously been placed in an [facility] medical record. Further advance directive information is declined. Assessment: 09/27 19:48 General: Appears in no apparent distress, comfortable, Behavior is anxious. General: pt slm resting on stretcher anxious at time cast intact to left lower leg . Respiratory: Airway is patent Respiratory effort is even, unlabored. 20:31 General: Appears in no apparent distress, comfortable, Behavior is cooperative. slm General: pt resting on stretcher with eyes closed security observing safety maintained . Respiratory: Airway is patent Respiratory effort is even, unlabored. Derm: Skin is pink, warm & dry. 21:30 General: Appears in no apparent distress, comfortable, to be sleeping. Behavior is slm quiet. General: resting on stretcher security observing . Respiratory: Airway is patent Respiratory effort is even, unlabored. 22:12 General: Appears in no apparent distress, comfortable, to be sleeping. Behavior is slm cooperative. General: pt resting on stretcher safety maintained . Respiratory: Airway is patent Respiratory effort is even, unlabored. Derm: Skin is pink, warm & dry. 23:23 General: Appears in no apparent distress, comfortable, to be sleeping. Behavior is slm quiet. General: resting on stretcher security observing . Respiratory: No deficits noted. 09/28 00:15 General: Appears in no apparent distress, comfortable, to be sleeping. Behavior is slm quiet. General: pt resting on stretcher asleep security observing safety maintained . Respiratory: Airway is patent Respiratory effort is even, unlabored. 01:20 General: Appears in no apparent distress, comfortable, Behavior is cooperative. slm General: pt resting on stretcher awake at this time calm drinking fluids denies needs security observing . Neurological: Level of Consciousness is awake, alert, obeys commands. 01:58 General: Appears in no apparent distress, comfortable, to be sleeping. Behavior is slm cooperative, quiet. General: resting on stretcher security observing . Respiratory: Airway is patent Respiratory effort is even, unlabored. 03:00 General: Appears in no apparent distress, comfortable, to be sleeping. Behavior is slm cooperative. General: security observing . Respiratory: Airway is patent Respiratory effort is even, unlabored. Derm: Skin is pink, warm & dry. 04:05 General: Appears in no apparent distress, comfortable, Behavior is cooperative. slm General: pt resting on stretcher request box lunch c/o pain left leg 05/08 pain meds provided will cont to monitor pts pain . Pain: Location: left leg Pain currently is 8 out of 10 on a pain scale. Neurological: Level of Consciousness is awake, alert, obeys commands, Oriented to person, place, time. Respiratory: Airway is patent Respiratory effort is even, unlabored. Derm: Skin is pink, warm & dry. 04:34 Reassessment: Patient appears in no apparent distress at this time. General: Behavior slm is cooperative. Respiratory: Airway is patent Respiratory effort is even, unlabored. Mental Health Eval: 02:49 Status: The patient is not a community service officer coordinator or dependent. [facility] cl Behavioral Health: The patient is not an established patient of [facility] Behavioral Health. Referral Information: Evaluation referral is generated by a police agency: NICOLE on .. The patient was referred for evaluation because [facility] ED issued after pt called ED stating SI with plan to OD.. Subjective: The patients chief complaint is Pt is A&Ox3, clinically sober, reports feeling increasingly depressed in past weeks due to several family deaths recently as well as cast on leg due to recent fx. Pt c/o inability to "do anything", "I can't go out, can't cook, can't do anything and I just want to end it". Pt well known from prior ED contacts and psych admissions, pt denies HI/AH/VH, has hx of substance abuse, was intoxicated on arrival to ED last evening. Pt in no current outpt tx, states "I have appt.'s in September" though is vague about this, has hx of non-compliance as well. Pt continues to voice SI with plan to take overdose, cannot CFS at this time. . Delusions are denied. Patient's mood is dysthymic, irritable, Hallucinations are denied. Mental Health history: alcohol abuse, Bipolar Disorder, depression, abusing prescription drugs. marijuana. suicide attempt by by OD in past. Mental Health Admissions: multiple to [facility], last 09/05/16. Current Outpatient Mental Health Services: None. Current living environment is The patient currently lives alone. The patient is . Patient presents to Emergency Department with the following symptoms within the past 2 weeks: alcohol abuse, depressed mood, feelings of helplessness/hopelessness, non-compliance, pain, acute, sleep disturbance - erratic suicidal ideation with plan for pills. Mental status exam: Patients appearance is disheveled Patient's behavior is superficially cooperative Speech is normal. Affect is restricted. Mood is dysphoric. irritable. Hallucinations are denied. Appetite is erratic Memory is fair. Energy level is tires easily. Content of thought is depressive. depressive Thought process is intact. Cognitive level is oriented to person, place, time and situation Patient's insight is fair. Judgement is fair. Rapport with interviewer is guarded. Suicidal Ideation present with a plan to kill self by pills. Homicidal ideation is not present. 04:06 Disposition: Medically cleared for disposition by Ronny Yo DO Psychiatric Consult cl is performed by phone with Dr Russel Sloan. 04:09 [facility] Admission Criteria: The patient is experiencing suicidal ideation. The patient cl displays symptoms of severe psychiatric disorder resulting in disordered behavior and significant interference with his / her ability to maintain self care. Psychomotor Retardation. The patient requires continuous observation and/or control to protect self, others or property. The patient's care requires a multi-modal treatment plan under close supervision and coordination due to the complexity and severity of the patient's symptoms. Legal Status: Patient's legal status will be Emergency admission: 9.39. [place] Safe Act[place] is not applicable because patient was registered less than 6 months ago. DSM-V Differential Diagnosis: Unspecified Depressive Disorder (F32.9). Insurance Pre-Certification: Not Required. Family Notification: Notification to family of patient status is not currently needed or appropriate. Awaiting: transfer to [facility]. Social Work Consult: 09/27 18:51 Social Work Note: Pt called this health science writer on our main line, at 17:20. Pt reported cs drinking, has a History of suicide attempts, "had nothing to live for, had been drinking today, nobody cares if he is alive, wants to , plan OD on Depakote and high blood pressure medications, If my sister had not taken my guns, I would be using one of them right now, broke my ankle, can't do anything for 4 months, want live this way, I am , my whole family has on me the past 7 years, My Gladys January 09 2013, my love of my life, I don't want to live without her anymore, helpless and hopeless, I want to " then hung up on this health science writer at 17:45, after giving me his name and age. PSA had help to call 911 , issued a 9:45 brain pick[address] order with Dr. Ricks , pt presented on the phone tearful and intoxicated, presented to ED with NICOLE Navarro, #[id number]. Vital Signs: 19:00 Weight 82.55 kg; Height 5 ft. 7 in. (170.18 cm); pml 20:02 BP 101 / 58; Pulse 79; Resp 18; Temp 96.6(O); Pulse Ox 97% on R/A; Pain 5/10; mdr 09/28 04:07 BP 144 / 67; Pulse 73; Resp 18; Temp 97.1; Pulse Ox 97% ; Pain 8/10; slm 09/27 19:00 Body Mass Index 28.50 (82.55 kg, 170.18 cm) [facility] Vitals: 09/27 19:00 Log In Time N/A - ambulance arrival. [facility] ED Course: 18:42 Patient visited by Almita Galvez. gjb 18:42 Patient moved to Waiting gjb 18:48 Patient moved to [facility] pjf 18:56 Pt greeted and oriented to ED. Patient advised of names of staff involved in care, pjf location of call arnold, wait times and NPO status. Accompanied by Law Enforcement, nicole - (9.45), Patient has correct armband on for positive identification. Placed in psych safe attire. Bed in low position. Call light in reach. Side rails up X 1. Security observing. Property removed, secured in belongings bag- Placed in locker #3. Door closed. Noise minimized. Visitors limited. Report received from rn - psych. triage level #2, +si, +etoh, agitated, cooperative \\T\\ this time. The patient / caregiver is instructed regarding the plan of care and ED course. Psych Safety Check: Location: Psych Room. 18:57 Ronny Yo DO is Attending Physician. cs11 18:57 Patient visited by Ronny Yo DO. cs11 18:58 Triage Initiated pml 19:01 Patient visited by Farnk Fontanez Security Aide. pjf 19:17 Patient moved to OBSERVATION cs 19:25 Patient visited by Heath Traylor PCA. mdr 19:48 Megan Blancas LPN is Primary Nurse. slm 19:49 Patient visited by Heath Traylor PCA. mdr 19:50 No IV's were initiated during this patient's visit. No procedures done that require slm assistance. Labs drawn. (by ED staff). Sent per order to lab. Urine collected. Urine specimen sent to lab. 19:57 VALPROIC ACID (DEPAKOTE) Sent. slm 20:01 [facility] Payment Agreement was scanned into [employer] and attached to record. ks16 20:03 Patient visited by Heath rTaylor PCA. mdr 20:23 Patient visited by Heath Traylor PCA. mdr 20:31 Patient visited by Heath Traylor PCA. mdr 20:35 Patient visited by Megan Blancas LPN. slm 22:03 Patient visited by Megan Blancas LPN. slm 22:13 Patient visited by Megan Blancas LPN. slm 22:23 Patient visited by Heath Traylor PCA. mdr 22:42 Patient visited by Heath Traylor PCA. mdr 23:24 Patient visited by Megan Blancas LPN. slm 09/28 00:16 Patient visited by Megan Blancas LPN. slm 01:21 Patient visited by Megan Blancas LPN. slm 01:59 Patient visited by Megan Blancas LPN. slm 03:55 Patient visited by Megan Blancas LPN. slm 04:32 E Legal paperwork was scanned into [employer] and attached to record. cl 04:35 Patient visited by Megan Blancas LPN. slm 04:43 Russel Sloan is Hospitalizing Provider. cs11 08:07 T-Sheet-- Draft Copy was scanned into [employer] and attached to record. [facility] Administered Medications: 04:14 Drug: Tylenol 975 mg Route: PO; [facility] Attachments: 09/28 04:32 [facility] Legal paperwork cl Order Results: Lab Order: Acetaminophen Level; SPEC'M 09/27/16 19:32 Test: ACETAMINOPHEN LEVEL; Value: < 2.0; Range: 10.0-30.0; Abnormal: Below low normal; Units: UG/ML; Status: F Lab Order: Basic Metabolic Profile; [facility] 09/27/16 19:32 Test: GLUCOSE, FASTING; Value: 95; Range: 70-105; Units: MG/DL; Status: F Test: BLOOD UREA NITROGEN; Value: 12; Range: 7-18; Units: MG/DL; Status: F Test: CREATININE FOR GFR; Value: 0.83; Range: 0.70-1.30; Units: MG/DL; Status: F Test: GLOMERULAR FILTRATION RATE; Value: > 60.0; Range: >56; Status: F Test: SODIUM LEVEL; Value: 144; Range: 136-145; Units: MEQ/L; Status: F Test: POTASSIUM SERUM; Value: 4.4; Range: 3.5-5.1; Units: MEQ/L; Status: F Test: CHLORIDE LEVEL; Value: 109; Range: 98-107; Abnormal: Above high normal; Units: MEQ/L; Status: F Test: CARBON DIOXIDE LEVEL; Value: 25; Range: 21-32; Units: MEQ/L; Status: F Test: ANION GAP; Value: 10; Range: 8-16; Units: MEQ/L; Status: F Test: CALCIUM LEVEL; Value: 8.4; Range: 8.5-10.1; Abnormal: Below low normal; Units: MG/DL; Status: F Test Note: ; Units are mL/min/1.73 m2 Chronic Kidney Disease Staging per NKF: Stage I & II GFR >=60 Normal to Mildly Decreased Stage III GFR 30-59 Moderately Decreased Stage IV GFR 15-29 Severely Decreased Stage V GFR <15 Very Little GFR Left ESRD GFR <15 on NEW MEDIA STRATEGIST Lab Order: Complete Blood Count; [facility] 09/27/16 19:32 Test: WHITE BLOOD COUNT; Value: 9.6; Range: 4.0-10.0; Units: K/mm3; Status: F Test: RED BLOOD COUNT; Value: 4.37; Range: 4.30-6.10; Units: M/mm3; Status: F Test: HEMOGLOBIN; Value: 15.3; Range: 14.0-18.0; Units: g/dl; Status: F Test: HEMATOCRIT; Value: 43.9; Range: 42.0-52.0; Units: %; Status: F Test: MEAN CORPUSCULAR VOLUME; Value: 100.5; Range: 80.0-96.0; Abnormal: Above high normal; Units: fl; Status: F Test: MEAN CORPUSCULAR HEMOGLOBIN; Value: 34.9; Range: 27.0-33.0; Abnormal: Above high normal; Units: pg; Status: F Test: MEAN CORPUSCULAR HGB CONC; Value: 34.8; Range: 32.0-36.5; Units: g/dl; Status: F Test: RED CELL DISTRIBUTION WIDTH; Value: 12.4; Range: 11.5-14.5; Units: %; Status: F Test: PLATELET COUNT, AUTOMATED; Value: 283; Range: 150-450; Units: k/mm3; Status: F Lab Order: Drug Eval Toxicology ED Only; SPEC'M 09/27/16 19:32 Test: AMPHETAMINES LEVEL URINE; Value: NEGATIVE; Range: NEGATIVE; Status: F Test: BARBITURATES URINE; Value: NEGATIVE; Range: NEGATIVE; Status: F Test: BENZODIAZEPINES URINE; Value: NEGATIVE; Range: NEGATIVE; Status: F Test: CANNABINOIDS URINE; Value: POSITIVE; Range: NEGATIVE; Abnormal: Above high normal; Status: F Test: COCAINE METABOLITE URINE; Value: NEGATIVE; Range: NEGATIVE; Status: F Test: METHADONE URINE; Value: NEGATIVE; Range: NEGATIVE; Status: F Test: OPIATES URINE; Value: NEGATIVE; Range: NEGATIVE; Status: F Test: TRICYCLIC ANTIDEPRESS URINE; Value: NEGATIVE; Range: NEGATIVE; Status: F Test Note: ; FALSE POSITIVE RESULTS CAN BE CAUSED BY THE USE OF PANTOPRAZOLE (PROTONIX). Lab Order: Ethyl Alcohol (ethanol); SPEC'M 09/27/16 19:32 Test: ETHYL ALCOHOL (ETHANOL); Value: 0.220; Range: 0.000-0.010; Abnormal: Above high normal; Units: %; Status: F Lab Order: Liver Profile; SPEC'M 09/27/16 19:32 Test: AST/SGOT; Value: 13; Range: 15-37; Abnormal: Below low normal; Units: U/L; Status: F Test: ALT/SGPT; Value: 20; Range: 12-78; Units: U/L; Status: F Test: ALKALINE PHOSPHATASE; Value: 93; Range: 45-117; Units: U/L; Status: F Test: BILIRUBIN,TOTAL; Value: 0.2; Range: 0.2-1.0; Units: MG/DL; Status: F Test: BILIRUBIN,DIRECT; Value: < 0.1; Range: 0.0-0.2; Units: MG/DL; Status: F Test: TOTAL PROTEIN; Value: 6.9; Range: 6.4-8.2; Units: GM/DL; Status: F Test: ALBUMIN; Value: 3.6; Range: 3.2-5.2; Units: GM/DL; Status: F Test: ALBUMIN/GLOBULIN RATIO; Value: 1.09; Range: 1.00-1.93; Status: F Lab Order: Salicylate Level; [facility] 09/27/16 19:32 Test: SALICYLATE LEVEL; Value: 5.3; Range: 5.0-30.0; Units: MG/DL; Status: F Lab Order: Thyroid Stimulating Hormone; [facility]' 09/27/16 19:32 Test: THYROID STIMULATING HORMONE; Value: 0.648; Range: 0.358-3.740; Units: uIU/ML; Status: F Lab Order: Ammonia ([place] Tube on Ice, Not [place]); [facility]' 09/27/16 19:32 Test: AMMONIA; Value: 45; Range: <32; Abnormal: Above high normal; Units: uMOL/L; Status: F Lab Order: VALPROIC ACID (DEPAKOTE); [facility]' 09/27/16 19:32 Test: VALPROIC ACID (DEPAKOTE); Value: 38.5; Range: 50.0-100.0; Abnormal: Below low normal; Units: UG/ML; Status: F Outcome: 09/27 20:34 No special radiology studies were completed. [facility] 09/28 04:34 Discharge Assessment: Patient awake, alert and oriented x 3. No cognitive and/or [facility] functional deficits noted. Patient verbalized understanding of disposition instructions. patient administered narcotics - no. The following High Risk Discharge criteria are identified: None. Admitted to Psych accompanied by tech, via wheelchair, with chart. Condition: stable. 04:44 Decision to Hospitalize by Provider. cs11 04:[address] [facility] Signatures: Javid Contreras, PSA PSA cl Maged Pierce, PSA PSA cs Frank Fontanez, Darline Clifton,RN RN Ronny Landaverde, DO cs11 Megan Blancas,SUPERVISOR HOT STRIP MILL SUPERVISOR HOT STRIP MILL slm Heath Traylor, PIGMENT SUPPLIER PIGMENT SUPPLIER mdr Almita Galvez Kimberly, Reg Reg ks16 Simba, Breanne lopez Chart Complete MTDD
--- NOTE | 2016-09-30 05:46 | EDDOCDS ---
Physician Documentation [facility] Name: Darrick Graves Age: 51 yrs Sex: Male : 1965 Arrival Date: 09/27/2016 Time: 18:41 Bed OBSERVATION Private MD: Disposition: 09/28/16 04:44 Hospitalization ordered by Russel Sloan for Inpatient Admission. Preliminary diagnosis is Major depressive disorder, single episode. - Bed requested for Admit. - Status is Inpatient Admission. slm - Condition is Stable. - Problem is an ongoing problem. - Symptoms are unchanged. Historical: - Allergies: Aspirin (severe cramps); bupropion HCl (Seizures); Codeine Sulfate (Upset stomach); GABAPENTIN (passes out); Remeron (n/v); Rofecoxib; Toradol (diarrhea); Ultram (Seizures); - Home Meds: 1. lisinopril 10 mg Oral tab 1 tab once daily 2. clonidine HCl 0.1 mg Oral tab 1 tab 3 times per day 3. Depakote 500 mg Oral TbEC 1 tab 2 times per day 4. montelukast 10 mg oral tab 1 tab once daily 5. Claritin 10 mg Oral tab 1 tab once daily 6. Prilosec 20 mg Oral cpDR 2 caps once daily 7. atorvastatin 10 mg oral tab 1 tab once daily 8. dulera 200 mcg/5mcg 2 puff twice a day 9. Lamictal 25 mg Oral tab daily 10. Trazodone Oral 1 tab once daily - PMHx: Allergies, Seasonal; Anxiety; Asthma; Bipolar disorder; chronic neck and back pain; COPD; Depression; Hypertension; Seizure Disorder; - PSHx: Cholecystectomy; left tib fib repair; - Social history: Smoking status: Patient uses tobacco products, heavy tobacco smoker. No barriers to communication noted, The patient speaks fluent Turkish, Speaks appropriately for age. - Family history: Not pertinent. - : The pt / caregiver states he / she is not on anticoagulants. Home medication list is obtained from the patient. - Exposure Risk Screening:: None identified. Vital Signs: 09/27 19:00 Weight 82.55 kg / 181.99 lbs; Height 5 ft. 7 in. (170.18 cm); pml 20:02 BP 101 / 58; Pulse 79; Resp 18; Temp 96.6(O); Pulse Ox 97% on R/A; Pain 5/10; mdr 09/28 04:07 BP 144 / 67; Pulse 73; Resp 18; Temp 97.1; Pulse Ox 97% ; Pain 8/10; slm 09/27 19:00 Body Mass Index 28.50 (82.55 kg, 170.18 cm) pml MDM: 09/27 18:57 Consult PFS/PSA/Motor Analyst ordered. cs11 19:17 Consult PFS/PSA/Motor Analyst: Patient's case requires discussion with on-call cs11 Psychiatrist ordered. 19:17 PSA/PFS to call Nursing Sas Bi Developer, to enter patient data on [place] Safe [place] if patient cs11 involuntarily admitted or transferred for SI or HI ordered. 19:17 Confirm accurate psychiatric medication list and times of last dosage ordered. cs11 19:17 Detain Pt Until Medically/PFS Cleared ordered. cs11 19:18 Acetaminophen Level Ordered. EDMS 19:18 Basic Metabolic Profile Ordered. EDMS 19:18 Complete Blood Count Ordered. EDMS 19:18 Drug Eval Toxicology ED Only Ordered. EDMS 19:18 Ethyl Alcohol (ethanol) Ordered. EDMS 19:18 Liver Profile Ordered. EDMS 19:18 Salicylate Level Ordered. EDMS 19:18 Thyroid Stimulating Hormone Ordered. EDMS 19:18 Ammonia (Little Green Tube on Ice, Not Pea Green) Ordered. EDMS 19:40 VALPROIC ACID (DEPAKOTE) Ordered. EDMS 19:57 Consult PFS/PSA/Motor Analyst complete. 20:00 Financial registration complete. [email or web address] 20:01 [facility] Payment Agreement was scanned into [employer] and attached to record. [facility] 09/28 00:53 Acetaminophen Level Reviewed. cs11 00:53 Basic Metabolic Profile Reviewed. cs11 00:53 Complete Blood Count Reviewed. cs11 00:53 Drug Eval Toxicology ED Only Reviewed. cs11 00:53 Ethyl Alcohol (ethanol) Reviewed. cs11 00:53 Liver Profile Reviewed. cs11 00:53 Ammonia (Little Green Tube on Ice, Not Pea Green) Reviewed. cs11 00:53 VALPROIC ACID (DEPAKOTE) Reviewed. cs11 00:53 Salicylate Level Reviewed. cs11 00:53 Thyroid Stimulating Hormone Reviewed. cs11 04:05 Tylenol 975 mg PO once ordered. m 04:12 Consult PFS/PSA/Motor Analyst: Patient's case requires discussion with on-call cl Psychiatrist complete. 04:12 PSA/PFS to call Nursing Sas Bi Developer, to enter patient data [place] Safe [place] if patient cl involuntarily admitted or transferred for SI or HI complete. 04:17 Admit to IM: ordered. EDMS 04:18 REGULAR DIET ordered. EDMS 04:32 [facility] Legal paperwork was scanned into [employer] and attached to record. cl 04:44 BED REQUEST+ADM ordered. EDMS 08:07 T-Sheet-- Draft Copy was scanned into [employer] and attached to record. seh Administered Medications: 04:14 Drug: Tylenol 975 mg Route: PO; slm Signatures: Dispatcher [employer] EDMS Javid Contreras, MEAGAN PSA cl Darline Schreiber,N[place]ON RN Ronny Landaverde, DO cs11 Megan Blancas,CONTROL ROOM HELPER CONTROL ROOM HELPER [facility] Asuncion Garcia, Reg Reg ks16 Breanne Cottrell [facility] The chart was reviewed and I authenticate all verbal orders and agree with the evaluation and treatment provided.Corrections: (The following items were deleted from the chart) 09/27 19:39 19:18 VALPROIC ACID (DEPAKOTE)+LAB ordered. EDMS EDMS Attachments: 20:01 [facility] Payment Agreement [email or web address] 08:07 T-Sheet-- Draft Copy [facility] Chart Complete MTDD
[2016-09-30 06:00] VITALS: BP 152/83
[2016-09-30] MEDS: ADVAIR HFA 115/21 INHALER INH SCH ×2 (08:11→21:27)
[2016-09-30] MEDS: lamoTRIgine 25 MG TAB PO SCH ×2 (08:14→21:27)
[2016-09-30] MEDS: LISINOPRIL 10 MG TAB PO SCH (08:14)
[2016-09-30] MEDS: MULTIVITAMINS/MINERALS THERAP 1 TAB PO SCH (08:14)
[2016-09-30] MEDS: FLUoxetine 20 MG CAP PO SCH (08:14)
[2016-09-30] MEDS: MONTELUKAST 10 MG TAB PO SCH (08:14)
[2016-09-30] MEDS: NICOTINE 21MG/24HR 1 EA TRANSDERMAL TD SCH (08:14)
[2016-09-30] MEDS: FOLIC ACID 1 MG TAB PO SCH (08:15)
[2016-09-30] MEDS: THIAMINE 100 MG TAB PO SCH ×2 (08:15→21:27)
[2016-09-30] MEDS: DIVALPROEX 500MG *ER* TAB PO SCH ×2 (08:15→21:27)
[2016-09-30] MEDS: cloNIDine 0.1 MG TAB PO SCH ×3 (08:15→21:31)
[2016-09-30] MEDS: OMEPRAZOLE 20 MG CAP PO SCH (08:19)
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
[2016-09-30 11:24] VITALS: BP 108/54
[2016-09-30 18:00] VITALS: BP 124/55
--- NOTE | 2016-09-30 20:48 | IPN ---
DATE: 09/29/2016 VITAL SIGNS: Temperature 96.8, pulse 78, respirations 18, blood pressure 132/86. CURRENT MEDICATIONS: - Prozac 10 mg in the morning - Lamictal 25 mg twice a day - Depakote ER 500 mg twice a day - trazodone 50 mg at night as needed PSYCHIATRIC HISTORY: The patient's chief complaint is regarding the pain from his fractured ankle. The patient is urged to keep his leg elevated. The patient feels irritable like he wants to punch a table or punch the card. He knows that this will have negative consequences. He does like the Prozac. He feels more mellow on it. He likes the Lamictal as well. He is again educated as to the risk of Sanket-Ricardo syndrome, especially as he has concomitant Depakote. The patient has not done well on other psychotropics in the past. For example, Seroquel made him "like a zombie." Zyprexa gave him bad headaches. MENTAL STATUS EXAMINATION: The patient does appear anxious, on edge, and somewhat irritable. He appears to be in pain. Level of 4 to 5 out of 10. He is not currently homicidal or suicidal. Insight and judgment are fair. No signs of psychosis. No signs of organicity. IMPRESSION: 1. Major depression, recurrent. 2. Alcohol use disorder. 3. Cannabis use disorder. PLAN: Increase Prozac to 20 mg in the morning. Monitor closely for any signs of skin rash.
[2016-09-30] MEDS: ATORVASTATIN 10 MG TAB PO SCH (21:27)
[2016-09-30 21:32] VITALS: BP 121/56
[2016-10-01] MEDS: traZODone 50 MG TAB PO PRN (00:57)
[2016-10-01] MEDS: NORCO, ANEXSIA 5/325MG TABLET (HYDROcodone/ACETAMINOPHEN) PO PRN ×5 (04:35→22:25)
[2016-10-01 06:14] VITALS: BP 135/71
--- NOTE | 2016-10-01 07:52 | HPE ---
DATE OF ADMISSION: 09/28/2016 HISTORY OF PRESENT ILLNESS: Please refer to psychiatric history and evaluation for further details on this admission. This examination and history is intended for medical issues which may need treatment, followup or consult on this 51-year-old male. ALLERGIES: ASPIRIN, BUPROPION, CODEINE, GABAPENTIN, IBUPROFEN, KETOROLAC, MIRTAZAPINE, ROFECOXIB, TRAMADOL, ZIPRASIDONE. SOCIAL HISTORY: He resides in [place]. He is . He is disabled. He smokes 1-1/2 packs of cigarettes per day but he is currently utilizing the nicotine patch and states he is going to attempt to quit. ETOH at least two drinks per day and some days more. Recreational drug use: Marijuana. PAST MEDICAL HISTORY: He has recently had a spiral fibular fracture, left ankle fracture dislocation. PAST MEDICAL HISTORY: Asthma. Chronic obstructive pulmonary disease (COPD). Seasonal allergies. Hypertension. Seizure disorder. Bipolar disorder. Anxiety. Depression. Chronic neck pain. Chronic low back pain. Chronic left shoulder pain. History of alcohol abuse. Hyperlipidemia. Tobacco use. PAST SURGICAL HISTORY: On the , he had an open reduction and internal fixation of the fibula with plate and screws. Cholecystectomy. Facial abscess incision and drainage (I and D) in 1989. FAMILY HISTORY: Noncontributory. REVIEW OF SYSTEMS: Other than his left postoperative ankle discomfort and chronic neck and back pain, he had no complaints. Was feeling well. CURRENT MEDICATIONS: - hydrocodone 5/325 one by mouth every 4 hours as needed for pain - atorvastatin 10 mg by mouth daily at bedtime - Catapres 0.1 mg by mouth three times daily - Depakote 500 mg by mouth twice daily - Lamictal 25 mg by mouth daily - lisinopril 10 mg by mouth daily - Claritin 10 mg by mouth daily - Singulair 10 mg by mouth daily - omeprazole 40 mg by mouth daily - trazodone 50 mg by mouth daily at bedtime as needed for sleep - Dulera 200/5 one inhalation twice daily PHYSICAL EXAMINATION: 51-year-old cooperative male in no acute distress. Height 67 inches, weight 82.5 kg, body mass index (BMI) 28.5, blood pressure 133/76, pulse 70, respirations 18, temperature 96.8. Patient is alert and oriented times three. Pupils equal and reactive to light. Extraocular motion intact. Sclera is clear. Conjunctive is normal. No facial asymmetry. Pharynx, tongue and gums pink and moist. Tongue is midline. Neck is supple, without lymphadenopathy. No thyromegaly. No goiter. Chest clear to auscultation, without wheeze or retraction. Heart is regular. Abdomen benign. Bowel sounds positive. Genitourinary ()/Rectal: Not done. Extremities show equal strength, full range of motion. No cyanosis, clubbing or edema. Gash noted on left lower leg. No redness or swelling. Peripheral pulses equal and palpable bilaterally. Skin is warm and dry. IMPRESSION: Status post open reduction and internal fixation of the fibula with plate and screws. Continue utilizing crutch. Has a followup scheduled with [facility] on Friday, . History of asthma, Chronic obstructive pulmonary disease (COPD), stable. Dulera unavailable on pharmacy. Will replace with Advair 250/50 one inhalation twice daily. Hypertension, stable. Seizure disorder. Continue Depakote. Hypercholesterolemia. Check fasting lipids. Continue atorvastatin. Continue Prilosec. Layton, the food safety director, was present during the entire exam. No other acute medical issues. Nicotine patch for smoking cessation. MTDD
--- NOTE | 2016-10-01 08:47 | IPN ---
DATE OF SERVICE: 09/30/2016 Temperature 96.0, pulse 59, respirations 16, blood pressure 108/54. CURRENT MEDICATION: - Prozac 20 mg every morning - Lamictal 25 mg twice a day - Depakote ER 500 mg twice a day - trazodone 50 mg at bedtime as needed PSYCHIATRIC HISTORY: The patient slept quite deeply last night, in fact, too deeply. He actually had a bladder accident for the first time. He did feel quite relaxed and rested this morning, however, when he woke up. He felt much calmer. His pain from his cast is also much improved. He reports the swelling is down. He states his mood is better. He is tolerating the Prozac quite well. Medicine has been effective in the past. MENTAL STATUS EXAMINATION: The patient is alert, oriented, and cooperative. The patient less irritable with decrease in anxiety. Mood is also improved. Affect is brighter. He is not voicing suicidal thoughts. He is not homicidal. No signs of psychosis. IMPRESSION: 1. Major depression, recurrent. 2. Alcohol use disorder. PLAN: Continue current psychotropics. The patient urged not to take the trazodone, as this may have contributed to his bladder accident. The patient will meet with his attending psychiatrist tomorrow to review his case and situation.
[2016-10-01] MEDS: FOLIC ACID 1 MG TAB PO SCH (08:53)
[2016-10-01] MEDS: DIVALPROEX 500MG *ER* TAB PO SCH ×2 (08:53→20:21)
[2016-10-01] MEDS: MONTELUKAST 10 MG TAB PO SCH (08:54)
[2016-10-01] MEDS: MULTIVITAMINS/MINERALS THERAP 1 TAB PO SCH (08:54)
[2016-10-01] MEDS: FLUoxetine 20 MG CAP PO SCH (08:55)
[2016-10-01] MEDS: OMEPRAZOLE 20 MG CAP PO SCH (08:55)
[2016-10-01] MEDS: lamoTRIgine 25 MG TAB PO SCH ×2 (08:55→20:21)
[2016-10-01] MEDS: cloNIDine 0.1 MG TAB PO SCH ×3 (08:56→20:21)
[2016-10-01] MEDS: hydrOXYzine 50 MG TAB PO PRN ×2 (08:56→21:12)
[2016-10-01] MEDS: NICOTINE 21MG/24HR 1 EA TRANSDERMAL TD SCH (08:58)
[2016-10-01] MEDS: ADVAIR HFA 115/21 INHALER INH SCH ×2 (08:59→20:22)
[2016-10-01] MEDS: LISINOPRIL 10 MG TAB PO SCH (09:00)
[2016-10-01 13:50] VITALS: BP 122/59
[2016-10-01 18:00] VITALS: BP 116/50
[2016-10-01] MEDS: ATORVASTATIN 10 MG TAB PO SCH (20:21)
[2016-10-01 20:23] VITALS: BP 144/67
--- NOTE | 2016-10-01 20:54 | IPN ---
DATE: 10/01/2016 SUBJECTIVE: Darrick is a 51-year-old man with an admitting diagnosis of major depressive disorder and alcoholism, who was admitted on 09/28/2016 due to worsening depression and suicidal ideation. Today is his fourth day of inpatient hospitalization and he did state that his sister played a game on him, telling him that his brother had early August. While it was untrue that his brother actually did , he says that he got devastated because of such news, in addition to having lost his job. He became so upset that he fell down the stairs, and became even more depressed. 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 On the day of admission, he called the emergency department that stated that he could not go on and that he wanted to kill himself. As a result a tack picker order was issued, following which he was brought to the emergency room by police. He states today that he is feeling much better, as his depression seems to be getting better as a result of being restarted on his antidepressant medication. CURRENT MEDICATIONS: Fluoxetine 20 mg daily, lamotrigine 25 mg orally twice daily, Depakote 500 mg orally twice daily, omeprazole 40 mg daily, atorvastatin 1- mg at bedtime, clonidine 0.1 mg three times daily, lisinopril 10 mg daily. He also is on hydroxyzine 15 mg on as needed basis as well as lorazepam 2 mg on as needed basis. OBSERVATION: Vital signs are stable: Blood pressure 135/71, pulse 64, respiration 20 and temperature 96.5. Patient is observed with a cast on his right lower extremity. He is calm and cooperative, fairly groomed, no abnormal involuntary movements noted. His speech is of normal volume, rate and rhythm. Thought process: Is current and logical. No evidence of delusions or ideas of reference and he denies any form of hallucinations and does not appear to be responding to internal stimuli. His mood is noticeably less depressed. Affect is pleasant. He denies suicidal thoughts, plans or intent as well as homicidal ideation. No medication related adverse events evident. ASSESSMENT: Overall, he appears relatively stable and has not been a management problem. He currently seems to be responding to medication. PLAN: He will continue on the current treatment with ongoing reviews and if stable in the next 48 hours will be scheduled for possible discharge. JUDY
[2016-10-02] MEDS: NORCO, ANEXSIA 5/325MG TABLET (HYDROcodone/ACETAMINOPHEN) PO PRN ×6 (02:28→23:03)
[2016-10-02 06:41] VITALS: BP_SYST 142; BP_SYST 144; BP_DIAS 67; BP_DIAS 82
[2016-10-02] MEDS: MULTIVITAMINS/MINERALS THERAP 1 TAB PO SCH (08:43)
[2016-10-02] MEDS: MONTELUKAST 10 MG TAB PO SCH (08:43)
[2016-10-02] MEDS: LISINOPRIL 10 MG TAB PO SCH (08:44)
[2016-10-02] MEDS: lamoTRIgine 25 MG TAB PO SCH ×2 (08:44→21:35)
[2016-10-02] MEDS: DIVALPROEX 500MG *ER* TAB PO SCH ×2 (08:44→21:35)
[2016-10-02] MEDS: cloNIDine 0.1 MG TAB PO SCH ×3 (08:44→21:35)
[2016-10-02] MEDS: FOLIC ACID 1 MG TAB PO SCH (08:44)
[2016-10-02] MEDS: NICOTINE 21MG/24HR 1 EA TRANSDERMAL TD SCH (08:45)
[2016-10-02] MEDS: ADVAIR HFA 115/21 INHALER INH SCH ×2 (08:45→21:35)
[2016-10-02] MEDS: OMEPRAZOLE 20 MG CAP PO SCH (08:45)
[2016-10-02] MEDS: FLUoxetine 20 MG CAP PO SCH (08:46)
[2016-10-02 12:00] VITALS: BP 129/57
[2016-10-02 18:00] VITALS: BP 119/67
[2016-10-02] MEDS: ATORVASTATIN 10 MG TAB PO SCH (21:35)
--- NOTE | 2016-10-02 23:08 | IPN ---
DATE: 10/02/2016 TREATMENT: Darrick continues to receive fluoxetine 20 mg daily in addition to lamotrigine orally twice daily. He reports today that he is doing relatively better and requests to be discharged. He says that he has been compliant with his medication and no longer experiencing severe depressive symptoms or suicidal ideation. He states that his current medication fluoxetine, Depakote and the clonidine are all working fine. No new problems reported. No reported incidents involving the patient in the past 24 hours. MENTAL STATUS EXAM: He is alert, calm and cooperative. His speech is fluent, prosodic. He is noted to interact normally with is peers. No delusions or ideas of reference evident. He denies any form of hallucination. His mood has improved notably and he denies suicidal or homicidal thoughts, plan or intent. VITAL SIGNS: Blood pressure 142/67, pulse 71, respirations 18, temperature 96.2. ASSESSMENT: The patient has demonstrated notable improvement in his symptoms and he is relatively stable. If he maintains continued stability in the next 24 hours, he will be discharged, with appropriate followup arrangements. JUDY
[2016-10-03] MEDS: NORCO, ANEXSIA 5/325MG TABLET (HYDROcodone/ACETAMINOPHEN) PO PRN ×3 (04:40→14:12)
[2016-10-03 06:00] VITALS: BP 151/65
[2016-10-03] MEDS ORDERED: NICO21PAT TD (08:31)
[2016-10-03] MEDS ORDERED: ALBU17IN INH (08:31)
[2016-10-03] MEDS: cloNIDine 0.1 MG TAB PO SCH ×2 (09:00→15:57)
[2016-10-03] MEDS: FOLIC ACID 1 MG TAB PO SCH (09:35)
[2016-10-03] MEDS: ADVAIR HFA 115/21 INHALER INH SCH (09:35)
[2016-10-03] MEDS: MULTIVITAMINS/MINERALS THERAP 1 TAB PO SCH (09:35)
[2016-10-03] MEDS: NICOTINE 21MG/24HR 1 EA TRANSDERMAL TD SCH (09:35)
[2016-10-03] MEDS: OMEPRAZOLE 20 MG CAP PO SCH (09:35)
[2016-10-03] MEDS: FLUoxetine 20 MG CAP PO SCH (09:35)
[2016-10-03] MEDS: DIVALPROEX 500MG *ER* TAB PO SCH (09:35)
[2016-10-03 09:36] VITALS: BP 117/58
[2016-10-03] MEDS: lamoTRIgine 25 MG TAB PO SCH (09:36)
[2016-10-03] MEDS: LISINOPRIL 10 MG TAB PO SCH (09:36)
[2016-10-03] MEDS: MONTELUKAST 10 MG TAB PO SCH (09:36)
[2016-10-03] MEDS ORDERED: FLUO20CA9 PO (11:21)
[2016-10-03] MEDS ORDERED: LAMI25TA PO (11:21)
[2016-10-03] MEDS: hydrOXYzine 50 MG TAB PO PRN (13:02)
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
== END 2016-10-03 16:30 | disposition home or self-care (01) | DRG 881 ==
LOC: M ED 18:41 → M PSY 09-28 04:47
PROVIDERS: ADMIT Psychiatry & Neurology Psychiatry; ATTEND Psychiatry & Neurology Psychiatry
DX: F32.9 Major depressive disorder, single episode, unspecified (principal); R45.851 Suicidal ideations; F17.210 Nicotine dependence, cigarettes, uncomplicated; S82.62XD Displaced fracture of lateral malleolus of left fibula, subsequent encounter for closed fracture with routine healing; I10 Essential (primary) hypertension; G40.909 Epilepsy, unspecified, not intractable, without status epilepticus; J45.909 Unspecified asthma, uncomplicated; E78.5 Hyperlipidemia, unspecified; J44.9 Chronic obstructive pulmonary disease, unspecified; Z88.6 Allergy status to analgesic agent; Z88.8 Allergy status to other drugs, medicaments and biological substances; Z90.49 Acquired absence of other specified parts of digestive tract; Z79.899 Other long term (current) drug therapy; X58.XXXD Exposure to other specified factors, subsequent encounter; Y99.9 Unspecified external cause status

== ENCOUNTER 2016-12-31 23:14 | Emergency (ER) | payer MEDICARE, MEDICAID ==
[~2016-12-31] VITALS: Ht 170.2 cm; Wt 83.9 kg
[~2016-12-31 23:14] MED LIST changes: +CLAR10CA3 PO; +FLUO20CA9 PO; +HYDR-3713 PO; -PRIL20CA PO; +PRIL20CA9 PO
[2017-01-01 00:45] LABS: BASO % 0.3 % (0.0-1.0); EOS # 0.4 K/mm3 (0.0-0.50); EOS % 2.8 % (0.0-3.0); LARGE UNSTAINED CELL # 0.1 K/mm3 (0.0-0.4); LARGE UNSTAINED CELL % 1.1 % (0.0-4.0); LYMPH % 29.8 % (24.0-44.0); MEAN CORPUSCULAR HEMOGLOBIN 34.9 pg (27.0-33.0); MEAN CORPUSCULAR HGB CONC 34.4 g/dl (32.0-36.5); MEAN CORPUSCULAR VOLUME 101.3 fl (80.0-96.0); MONO # 0.8 K/mm3 (0.0-0.8); NEUTROPHILS # 7.8 K/mm3 (1.8-7.7); PLATELET COUNT, AUTOMATED 204 k/mm3 (150-450)
[2017-01-01 00:54] LABS: INR 0.99
[2017-01-01 01:08] LABS: ALBUMIN 3.6 GM/DL (3.2-5.2); ALBUMIN/GLOBULIN RATIO 1.06 (1.00-1.93); ALKALINE PHOSPHATASE 89 U/L (45-117); ALT/SGPT 21 U/L (12-78); ANION GAP 5 MEQ/L (8-16); AST/SGOT 14 U/L (15-37); BILIRUBIN,DIRECT < 0.1 MG/DL (0.0-0.2); BILIRUBIN,TOTAL 0.3 MG/DL (0.2-1.0); BLOOD UREA NITROGEN 19 MG/DL (7-18); CALCIUM LEVEL 9.1 MG/DL (8.5-10.1); CARBON DIOXIDE LEVEL 26 MEQ/L (21-32); CHLORIDE LEVEL 107 MEQ/L (98-107); CREATININE FOR GFR 0.74 MG/DL (0.70-1.30); FREE T4 0.84 NG/DL (0.76-1.46); GLOMERULAR FILTRATION RATE > 60.0 (>56); GLUCOSE, FASTING 112 MG/DL (70-105); POTASSIUM SERUM 3.8 MEQ/L (3.5-5.1); SODIUM LEVEL 138 MEQ/L (136-145)
[2017-01-01] MEDS ORDERED: MORPHINE 2 MG/ML 1ML SYRINGE IV ONE (02:00)
--- NOTE | 2017-01-01 02:50 | REPUSA ---
CLINICAL HISTORY: Edema. COMMENTS: Real time sonography with duplex doppler of the left lower extremity was performed with attention to the major deep venous structures. Evaluation reveals the left common femoral, superficial femoral and popliteal veins to be completely compressible without intraluminal thrombus. There is normal spontaneous phasic flow and augmentation. The greater saphenous/common femoral vein junction is patent. IMPRESSION: No evidence of DVT in left lower extremity.. Thank you for your kind referral of this patient.
[2017-01-01] MEDS ORDERED: NS 1,000 ML IV ONE (04:30)
[2017-01-01 05:55] VITALS: BP 113/59
--- NOTE | 2017-01-01 21:42 | ECGEPIP ---
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
== END 2017-01-01 06:22 | disposition home or self-care (01) ==
LOC: EDBD 23:14 → M ED 01-01 00:45
DX: M79.1 Myalgia (principal); F17.210 Nicotine dependence, cigarettes, uncomplicated; R06.02 Shortness of breath; R11.0 Nausea; R42 Dizziness and giddiness

== ENCOUNTER 2017-03-18 00:01 | Emergency (ER) | payer MEDICARE, MEDICAID ==
[~2017-03-18] VITALS: Ht 172.7 cm; Wt 95.0 kg
[~2017-03-18 00:01] MED LIST changes: +FLUO20CA19 PO; -FLUO20CA9 PO; -FOLI1TAB2 PO; +FOLI1TAB4 PO; +LAMI1TAB9 PO; -LAMI200T3 PO; -NORC7.5T PO; +NORC7.5T35 PO; +PREV1CAP PO; -PREV30CA11 PO; -PROA1AER INH; +PROAAER10 INH; +TRAZ50TA11 PO; -TRAZ50TA4 PO
[2017-03-18 01:50] LABS: MEAN CORPUSCULAR HEMOGLOBIN 34.5 pg (27.0-33.0); MEAN CORPUSCULAR HGB CONC 34.4 g/dl (32.0-36.5); MEAN CORPUSCULAR VOLUME 100.1 fl (80.0-96.0); RED CELL DISTRIBUTION WIDTH 13.1 % (11.5-14.5); WHITE BLOOD COUNT 11.2 K/mm3 (4.0-10.0)
[2017-03-18 02:08] LABS: ANION GAP 9 MEQ/L (8-16); BLOOD UREA NITROGEN 11 MG/DL (7-18); CARBON DIOXIDE LEVEL 23 MEQ/L (21-32); CHLORIDE LEVEL 106 MEQ/L (98-107); GLOMERULAR FILTRATION RATE > 60.0 (>56); GLUCOSE, FASTING 91 MG/DL (70-105); SODIUM LEVEL 138 MEQ/L (136-145)
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
[2017-03-18] MEDS ORDERED: MORPHINE 4 MG/ML 1ML SYRINGE IV PRN (03:00)
[2017-03-18] MEDS ORDERED: VALPROATE SOD INJ 500 MG in D5W 50 ML IV ONE (03:00)
[2017-03-18] MEDS ORDERED: ONDANSETRON 4MG/2ML VIAL (J2405) IV ONE (03:00)
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
[2017-03-18] MEDS ORDERED: dexameTHASONE 20 MG/5 ML VIAL (J1100) IV ONE (04:00)
[2017-03-18 06:05] VITALS: BP 132/80
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
== END 2017-03-18 07:05 | disposition home or self-care (01) ==
LOC: EDBD 00:01 → M ED 01:17
DX: S02.2XXA Fracture of nasal bones, initial encounter for closed fracture (principal); S05.12XA Contusion of eyeball and orbital tissues, left eye, initial encounter; H11.32 Conjunctival hemorrhage, left eye; Y04.8XXA Assault by other bodily force, initial encounter; Y92.019 Unspecified place in single-family (private) house as the place of occurrence of the external cause; Y93.9 Activity, unspecified; Y99.8 Other external cause status; G40.909 Epilepsy, unspecified, not intractable, without status epilepticus; J45.909 Unspecified asthma, uncomplicated; Z79.51 Long term (current) use of inhaled steroids; Z79.899 Other long term (current) drug therapy; Z88.5 Allergy status to narcotic agent; Z88.6 Allergy status to analgesic agent; Z88.8 Allergy status to other drugs, medicaments and biological substances
CPT/HCPCS: 70450; 70486; 80048; 80164; 85027; 96374; 96375; 99284; J1100; J2405

== ENCOUNTER 2017-04-11 04:44 | Emergency (ER) | payer MEDICARE, MEDICAID ==
[~2017-04-11] VITALS: Ht 174 cm; Wt 91.0 kg
[2017-04-11] MEDS ORDERED: LORazepam 2 MG/ML VIAL (J2060) As Ordered ONE (04:49)
[2017-04-11 05:05] LABS: CARBOXYHEMOGLOBIN 5.6 % (0.0-1.5); VENOUS BASE EXCESS -3.9 (-2.0-2.0); VENOUS O2 SATURATION 98.9 % (60.0-80.0); VENOUS PARTIAL PRESSURE CO2 38.8 mmHg (38.0-50.0); VENOUS PARTIAL PRESSURE O2 200.6 mmHg (30.0-50.0); VENOUS STANDARD HCO3 21.3 MEQ/L; VENOUS TOTAL CO2 22.3 MEQ/L (24.0-28.0)
[2017-04-11 05:08] LABS: BASO # 0.1 K/mm3 (0.0-0.2); EOS # 0.4 K/mm3 (0.0-0.50); EOS % 4.1 % (0.0-3.0); LARGE UNSTAINED CELL # 0.3 K/mm3 (0.0-0.4); LARGE UNSTAINED CELL % 2.7 % (0.0-4.0); LYMPH # 5.1 K/mm3 (1.5-4.5); LYMPH % 47.1 % (24.0-44.0); MEAN CORPUSCULAR HEMOGLOBIN 34.5 pg (27.0-33.0); MEAN CORPUSCULAR VOLUME 98.6 fl (80.0-96.0); MONO # 0.6 K/mm3 (0.0-0.8); MONO % 6.1 % (0.0-5.0); PLATELET COUNT, AUTOMATED 247 k/mm3 (150-450); RED CELL DISTRIBUTION WIDTH 13.1 % (11.5-14.5)
[2017-04-11 05:18] LABS: WHITE BLOOD COUNT 10.2 K/mm3 (4.0-10.0)
[2017-04-11 05:43] LABS: ANION GAP 8 MEQ/L (8-16); BLOOD UREA NITROGEN 9 MG/DL (7-18); CALCIUM LEVEL 9.2 MG/DL (8.5-10.1); CARBON DIOXIDE LEVEL 24 MEQ/L (21-32); CHLORIDE LEVEL 106 MEQ/L (98-107); CREATININE FOR GFR 0.79 MG/DL (0.70-1.30); GLOMERULAR FILTRATION RATE > 60.0 (>56); GLUCOSE, FASTING 96 MG/DL (70-105); SODIUM LEVEL 138 MEQ/L (136-145)
[2017-04-11] MEDS ORDERED: IPRATROPIUM 0.5MG/ALBUTEROL 2.5MG INH SOL UD 3ML (DUONEB)(J7620) NEB ONE (05:45)
[2017-04-11] MEDS ORDERED: VALPROATE SOD INJ 500 MG in D5W 50 ML IV ONE (06:15)
--- NOTE | 2017-04-11 09:13 | REP ---
Left lower extremity Duplex Doppler venous ultrasound: Real time compression and duplex Doppler interrogation of the left lower extremity deep venous system is performed. The left common femoral, superficial femoral and popliteal veins are fully compressible with transducer pressure and demonstrate normal spontaneous and phasic flow, without evidence of deep venous thrombosis. Impression: No evidence of deep venous thrombosis of the left lower extremity femoral popliteal venous system. Signed by Markus Torres MD 04/11/2017 09:05 A
--- NOTE | 2017-04-11 09:41 | REP ---
LEFT FOOT: Four views left foot performed. There is no acute fracture or dislocation. Metallic plate and screws are seen in the distal fibula. IMPRESSION: No acute fracture or dislocation. Signed by Markus Torres MD 04/11/2017 05:21 P
--- NOTE | 2017-04-11 09:46 | REP ---
Chest one-view HISTORY: Shortness of breath Comparison: The lungs are clear. The heart is normal in size. The pulmonary vasculature is normal in appearance. Impression: No acute disease. Signed by Preston Olguin MD 04/11/2017 09:38 A
[2017-04-11 11:03] VITALS: BP 126/68
== END 2017-04-11 11:40 | disposition home or self-care (01) ==
LOC: M ED 04:44 → EDBD 04:44 → M ED 11:40
DX: G40.909 Epilepsy, unspecified, not intractable, without status epilepticus (principal); F10.129 Alcohol abuse with intoxication, unspecified; J70.5 Respiratory conditions due to smoke inhalation; J44.9 Chronic obstructive pulmonary disease, unspecified; F17.210 Nicotine dependence, cigarettes, uncomplicated; M79.89 Other specified soft tissue disorders
CPT/HCPCS: 71010; 73630; 80048; 80164; 82375; 82803; 83605; 85025; 93971; 94640; 96374; 99285; G0480

== ENCOUNTER 2018-02-14 14:19 | Inpatient (IN) | payer MEDICARE, MEDICAID ==
[2018-02-14] MEDS: CitaloPRAM (CeleXA) 20 MG TAB PO (09:00)
[2018-02-14] MEDS: NICOTINE 21MG/24HR 1 EA TRANSDERMAL TD ×2 (09:00→13:32)
[2018-02-14 13:56] LABS: HEMATOCRIT 45.9 % (42.0-52.0); HEMOGLOBIN 15.9 g/dl (13.5-17.5); MEAN CORPUSCULAR HEMOGLOBIN 33.8 pg (27.0-33.0); MEAN CORPUSCULAR HGB CONC 34.6 g/dl (32.0-36.5); MEAN CORPUSCULAR VOLUME 97.5 fl (80.0-96.0); PLATELET COUNT, AUTOMATED 238 10^3/uL (150-450); RED BLOOD COUNT 4.71 10^6/uL (4.30-6.10); RED CELL DISTRIBUTION WIDTH 13.2 % (11.5-14.5); WHITE BLOOD COUNT 8.3 10^3/uL (4.0-10.0)
[2018-02-14 14:16] LABS: AMPHETAMINES LEVEL URINE NEGATIVE (NEGATIVE); BARBITURATES URINE NEGATIVE (NEGATIVE); BENZODIAZEPINES URINE NEGATIVE (NEGATIVE); CANNABINOIDS URINE POSITIVE (NEGATIVE); COCAINE METABOLITE URINE NEGATIVE (NEGATIVE); METHADONE URINE NEGATIVE (NEGATIVE); OPIATES URINE NEGATIVE (NEGATIVE); PHENCYCLIDINE URINE NEGATIVE (NEGATIVE)
[2018-02-14 14:27] LABS: ACETAMINOPHEN LEVEL < 2.0 UG/ML (10.0-30.0); ALBUMIN 4.1 GM/DL (3.2-5.2); ALBUMIN/GLOBULIN RATIO 1.14 (1.00-1.93); ALKALINE PHOSPHATASE 105 U/L (45-117); ALT/SGPT 31 U/L (12-78); ANION GAP 8 MEQ/L (8-16); AST/SGOT 22 U/L (7-37); BILIRUBIN,DIRECT 0.1 MG/DL (0.0-0.2); BILIRUBIN,TOTAL 0.3 MG/DL (0.2-1.0); BLOOD UREA NITROGEN 7 MG/DL (7-18); CALCIUM LEVEL 8.6 MG/DL (8.5-10.1); CARBON DIOXIDE LEVEL 24 MEQ/L (21-32); CHLORIDE LEVEL 112 MEQ/L (98-107); CREATININE FOR GFR 0.63 MG/DL (0.70-1.30); ETHYL ALCOHOL (ETHANOL) 0.116 % (0.000-0.010); GLOMERULAR FILTRATION RATE > 60.0 (>56); GLUCOSE, FASTING 89 MG/DL (70-100); POTASSIUM SERUM 4.2 MEQ/L (3.5-5.1); SALICYLATE LEVEL 3.7 MG/DL (5.0-30.0); SODIUM LEVEL 144 MEQ/L (136-145); THYROID STIMULATING HORMONE 0.407 uIU/ML (0.358-3.740); TOTAL PROTEIN 7.7 GM/DL (6.4-8.2)
[2018-02-14] MEDS ORDERED: MOM 30ML SUSPENSION UDC PO (17:00)
[2018-02-14] MEDS ORDERED: MAALOX 30 ML SUSP *UDC PO (17:00)
[2018-02-14] MEDS: THIAMINE 100 MG TAB PO (19:25)
[2018-02-14] MEDS: traZODone 50 MG TAB PO (23:12)
[2018-02-14] MEDS: ACETAMINOPHEN TAB 650MG DOSE (2X325MG) PO (23:12)
[2018-02-14] MEDS: hydrOXYzine 50 MG TAB PO (23:12)
[2018-02-14] MEDS: FOLIC ACID 1 MG TAB PO (23:13)
[2018-02-15] MEDS: CitaloPRAM (CeleXA) 20 MG TAB PO (08:49)
[2018-02-15] MEDS: FOLIC ACID 1 MG TAB PO (08:51)
[2018-02-15] MEDS: MULTIVITAMINS/MINERALS THERAP 1 TAB PO (08:51)
[2018-02-15] MEDS: THIAMINE 100 MG TAB PO ×2 (08:51→22:40)
[2018-02-15] MEDS: NICOTINE 21MG/24HR 1 EA TRANSDERMAL TD (08:51)
[2018-02-15] MEDS: OMEPRAZOLE 20 MG CAP PO (15:28)
[2018-02-15] MEDS: MONTELUKAST 10 MG TAB PO (15:29)
[2018-02-15] MEDS: LORATADINE 10 MG TAB PO (15:29)
[2018-02-15] MEDS: LISINOPRIL 5 MG TAB PO (15:29)
[2018-02-15] MEDS: hydrOXYzine 50 MG TAB PO (15:31)
[2018-02-15] MEDS: FLUoxetine 20 MG CAP PO (16:36)
[2018-02-15] MEDS ORDERED: DIVALPROEX 250 MG TAB PO (21:00)
[2018-02-15] MEDS: traZODone 50 MG TAB PO (22:40)
[2018-02-15] MEDS: lamoTRIgine 25 MG TAB PO (22:41)
[2018-02-15] MEDS: LORazepam 2 MG TAB PO (22:41)
[2018-02-16] MEDS: NICOTINE 21MG/24HR 1 EA TRANSDERMAL TD (08:35)
[2018-02-16] MEDS: FOLIC ACID 1 MG TAB PO (08:35)
[2018-02-16] MEDS: lamoTRIgine 25 MG TAB PO ×2 (08:36→21:37)
[2018-02-16] MEDS: OMEPRAZOLE 20 MG CAP PO (08:36)
[2018-02-16] MEDS: MONTELUKAST 10 MG TAB PO (08:36)
[2018-02-16] MEDS: LISINOPRIL 5 MG TAB PO (08:36)
[2018-02-16] MEDS: LORATADINE 10 MG TAB PO (08:36)
[2018-02-16] MEDS: FLUoxetine 20 MG CAP PO (08:36)
[2018-02-16] MEDS: MULTIVITAMINS/MINERALS THERAP 1 TAB PO (08:36)
[2018-02-16] MEDS: THIAMINE 100 MG TAB PO ×2 (08:36→21:38)
[2018-02-16] MEDS ORDERED: ALBUTEROL SULFATE 2.5 MG/0.5 ML INH NEB SOLN NEB (11:30)
[2018-02-16] MEDS: ADVAIR HFA 230/21MCG INHALER INH ×2 (12:15→21:38)
[2018-02-16] MEDS: cloNIDine 0.1 MG TAB PO ×3 (12:15→21:37)
[2018-02-16] MEDS: hydrOXYzine 50 MG TAB PO (21:37)
[2018-02-16] MEDS: traZODone 50 MG TAB PO (21:38)
[2018-02-17] MEDS: NICOTINE 21MG/24HR 1 EA TRANSDERMAL TD (08:40)
[2018-02-17] MEDS: ADVAIR HFA 230/21MCG INHALER INH ×2 (08:41→20:14)
[2018-02-17] MEDS: MONTELUKAST 10 MG TAB PO (08:41)
[2018-02-17] MEDS: lamoTRIgine 25 MG TAB PO ×2 (08:41→20:13)
[2018-02-17] MEDS: THIAMINE 100 MG TAB PO (08:41)
[2018-02-17] MEDS: MULTIVITAMINS/MINERALS THERAP 1 TAB PO (08:41)
[2018-02-17] MEDS: LORATADINE 10 MG TAB PO (08:42)
[2018-02-17] MEDS: cloNIDine 0.1 MG TAB PO (08:42)
[2018-02-17] MEDS: FLUoxetine 20 MG CAP PO (08:42)
[2018-02-17] MEDS: LISINOPRIL 5 MG TAB PO (08:42)
[2018-02-17] MEDS: FOLIC ACID 1 MG TAB PO (08:43)
[2018-02-17] MEDS: OMEPRAZOLE 20 MG CAP PO (08:43)
[2018-02-17] MEDS: amLODIPine 5 MG TAB PO ×2 (10:10→20:14)
[2018-02-17] MEDS: traZODone 50 MG TAB PO (22:03)
[2018-02-17] MEDS: ACETAMINOPHEN TAB 650MG DOSE (2X325MG) PO (22:04)
[2018-02-18] MEDS: ADVAIR HFA 230/21MCG INHALER INH ×2 (08:21→21:09)
[2018-02-18] MEDS: FOLIC ACID 1 MG TAB PO (08:21)
[2018-02-18] MEDS: OMEPRAZOLE 20 MG CAP PO (08:21)
[2018-02-18] MEDS: amLODIPine 5 MG TAB PO ×2 (08:22→21:09)
[2018-02-18] MEDS: MULTIVITAMINS/MINERALS THERAP 1 TAB PO (08:22)
[2018-02-18] MEDS: LORATADINE 10 MG TAB PO (08:22)
[2018-02-18] MEDS: LISINOPRIL 5 MG TAB PO (08:22)
[2018-02-18] MEDS: FLUoxetine 20 MG CAP PO (08:22)
[2018-02-18] MEDS: MONTELUKAST 10 MG TAB PO (08:22)
[2018-02-18] MEDS: lamoTRIgine 25 MG TAB PO ×2 (08:22→21:09)
[2018-02-18] MEDS: NICOTINE 21MG/24HR 1 EA TRANSDERMAL TD (08:39)
[2018-02-18] MEDS: hydrOXYzine 50 MG TAB PO ×2 (10:13→21:12)
[2018-02-18] MEDS: traZODone 100 MG TAB PO (22:39)
[2018-02-18] MEDS: cloNIDine 0.1 MG TAB PO (22:55)
[2018-02-19] MEDS: LISINOPRIL 5 MG TAB PO (03:54)
[2018-02-19] MEDS: LORATADINE 10 MG TAB PO (08:31)
[2018-02-19] MEDS: FOLIC ACID 1 MG TAB PO (08:31)
[2018-02-19] MEDS: FLUoxetine 20 MG CAP PO (08:31)
[2018-02-19] MEDS: NICOTINE 21MG/24HR 1 EA TRANSDERMAL TD (08:31)
[2018-02-19] MEDS: MULTIVITAMINS/MINERALS THERAP 1 TAB PO (08:31)
[2018-02-19] MEDS: ADVAIR HFA 230/21MCG INHALER INH (08:31)
[2018-02-19] MEDS: lamoTRIgine 25 MG TAB PO (08:31)
[2018-02-19] MEDS: MONTELUKAST 10 MG TAB PO (08:32)
[2018-02-19] MEDS: amLODIPine 10 MG TAB PO (08:32)
[2018-02-19] MEDS: OMEPRAZOLE 20 MG CAP PO (08:32)
[2018-02-19] MEDS ORDERED: cloNIDine 0.1 MG TAB PO (09:30)
[2018-02-19] MEDS ORDERED: amLODIPine 10 MG TAB PO (21:00)
== END 2018-02-19 15:30 | disposition home or self-care (01) | DRG 885 ==
LOC: M ED 14:19 → M ED INP 16:57 → M PSY 19:43
DX: F31.81 Bipolar II disorder (principal); F41.1 Generalized anxiety disorder; F43.10 Post-traumatic stress disorder, unspecified; F60.2 Antisocial personality disorder; Z79.899 Other long term (current) drug therapy; Z88.6 Allergy status to analgesic agent; Z88.8 Allergy status to other drugs, medicaments and biological substances; Z88.5 Allergy status to narcotic agent; F17.210 Nicotine dependence, cigarettes, uncomplicated; J45.909 Unspecified asthma, uncomplicated; J44.9 Chronic obstructive pulmonary disease, unspecified; I10 Essential (primary) hypertension; G40.909 Epilepsy, unspecified, not intractable, without status epilepticus; M54.2 Cervicalgia; M54.5 Low back pain; E78.5 Hyperlipidemia, unspecified

== ENCOUNTER 2018-07-17 23:15 | Emergency (ER) | payer MEDICARE, MEDICAID ==
[2018-07-17 23:36] LABS: HEMATOCRIT 45.9 % (42.0-52.0); HEMOGLOBIN 15.9 g/dl (13.5-17.5); MEAN CORPUSCULAR HEMOGLOBIN 34.1 pg (27.0-33.0); MEAN CORPUSCULAR HGB CONC 34.6 g/dl (32.0-36.5); MEAN CORPUSCULAR VOLUME 98.5 fl (80.0-96.0); PLATELET COUNT, AUTOMATED 240 10^3/uL (150-450); RED BLOOD COUNT 4.66 10^6/uL (4.30-6.10); RED CELL DISTRIBUTION WIDTH 13.9 % (11.5-14.5)
[2018-07-17 23:37] LABS: WHITE BLOOD COUNT 14.3 10^3/uL (4.0-10.0)
[2018-07-17 23:38] LABS: ADD MANUAL DIFFER YES; DIFF SLIDE NUMBER 337; POSITIVE DIFF POS FLAG; POSITIVE MORPH POS FLAG
[2018-07-17 23:50] LABS: MAGNESIUM LEVEL 1.8 MG/DL (1.8-2.4)
[2018-07-17] MEDS: METOPROLOL 5 MG/5 ML VIAL IV (23:53)
[2018-07-17 23:57] LABS: ANION GAP 13 MEQ/L (8-16); BLOOD UREA NITROGEN 15 MG/DL (7-18); CARBON DIOXIDE LEVEL 21 MEQ/L (21-32); CHLORIDE LEVEL 104 MEQ/L (98-107); CPK CREATINE PHOSPHOKINASE 186 U/L (39-308); CREATININE FOR GFR 0.85 MG/DL (0.70-1.30); GLOMERULAR FILTRATION RATE > 60.0 (>56); GLUCOSE, FASTING 80 MG/DL (70-100); MB/CK RELATIVE INDEX 1.72 (< OR =4); POTASSIUM SERUM 4.2 MEQ/L (3.5-5.1); SODIUM LEVEL 138 MEQ/L (136-145); TROPONIN I < 0.02 NG/ML (< 0.10)
[2018-07-17 23:59] LABS: ATYPICAL LYMPH 4 % (0-5); EOSINOPHILS 4 % (0-5); LYMPHOCYTES 44 % (16-52); MONOCYTES 6 % (0-8); NEUTROPHILS 42 % (35-75); PLATELET ESTIMATE NORMAL (NORMAL)
[2018-07-18] MEDS: METOPROLOL 5 MG/5 ML VIAL IV ×4 (00:05→01:04)
[2018-07-18] MEDS ORDERED: ISOVUE-370 76% 100ML VIAL (Q9967) As Ordered (00:24)
[2018-07-18] MEDS: METOPROLOL TART 25 MG TABLET PO (01:05)
[2018-07-18] MEDS: VALPROATE SOD INJ 500 MG in D5W 50 ML IV (01:06)
== END 2018-07-18 04:16 | disposition home or self-care (01) ==
LOC: M ED 23:15
DX: I48.91 Unspecified atrial fibrillation (principal); G40.309 Generalized idiopathic epilepsy and epileptic syndromes, not intractable, without status epilepticus; F10.10 Alcohol abuse, uncomplicated; R00.0 Tachycardia, unspecified; S52.511A Displaced fracture of right radial styloid process, initial encounter for closed fracture; W19.XXXA Unspecified fall, initial encounter; Y92.89 Other specified places as the place of occurrence of the external cause; F17.210 Nicotine dependence, cigarettes, uncomplicated; Z88.6 Allergy status to analgesic agent; Z88.5 Allergy status to narcotic agent; Z88.8 Allergy status to other drugs, medicaments and biological substances; Z79.899 Other long term (current) drug therapy
CPT/HCPCS: Q9967

== ENCOUNTER → 2019-01-12 | Outpatient (REF) | payer MEDICARE, MEDICAID ==
[~2019-01-12] MED LIST changes: -/TIOT18INH; +ADV250INH; +AMLO10TA5 PO; +CYMB1CAP4; -DIVA500T3 PO; +DIVA500T94 PO; -DULO20CA; +FOLI1TAB11 PO; -FOLI1TAB4 PO; +HYDRO50TAB PO; +LORA-243 PO; +METO25TA4 PO; +MONT10TA2 PO; +NORC1TAB8 PO; -NORC7.5T35 PO; +SPIR1CAP; +TRAZ-160 PO; +TRAZ10TA PO; -TRAZ50TA11 PO; +VENTAER INH
[2019-01-12 12:37] LABS: AMORPHOUS SEDIMENT SMALL (NEGATIVE); APPEARANCE, URINE CLEAR (CLEAR); BACTERIA, URINE AUTO NEGATIVE (NEGATIVE); BILIRUBIN, URINE AUTO NEGATIVE (NEGATIVE); BLOOD, URINE BLOOD NEGATIVE (NEGATIVE); COLOR, URINE YELLOW (YELLOW); GLUCOSE, URINE (UA) AUTO NEGATIVE (NEGATIVE); KETONE, URINE AUTO TRACE mg/dL (NEGATIVE); LEUKOCYTE ESTERASE, URINE AUTO TRACE (NEGATIVE); MUCUS, URINE SMALL (NEGATIVE); NITRITE, URINE AUTO NEGATIVE (NEGATIVE); PROTEIN, URINE AUTO NEGATIVE (NEGATIVE); RBC, URINE AUTO 0 /HPF (0-3); SPECIFIC GRAVITY URINE AUTO 1.017 (1.002-1.035); SQUAMOUS EPITHELIAL CELL UR AU 0 /HPF (0-6); WBC, URINE AUTO 1 /HPF (0-3)
[2019-01-12 12:52] LABS: BASO # 0.1 10^3/uL (0.0-0.2); BASO % 0.5 % (0.0-1.0); EOS # 0.2 10^3/uL (0.0-0.50); EOS % 1.6 % (0.0-3.0); HEMATOCRIT 49.2 % (42.0-52.0); HEMOGLOBIN 17.9 g/dl (13.5-17.5); LYMPH # 3.9 10^3/uL (1.5-4.5); MEAN CORPUSCULAR HEMOGLOBIN 34.4 pg (27.0-33.0); MEAN CORPUSCULAR HGB CONC 36.4 g/dl (32.0-36.5); MEAN CORPUSCULAR VOLUME 94.6 fl (80.0-96.0); MONO # 1.1 10^3/uL (0.0-0.8); MONO % 9.1 % (0.0-5.0); NEUTROPHILS # 6.5 10^3/uL (1.8-7.7); NEUTROPHILS % 55.5 % (36.0-66.0); PLATELET COUNT, AUTOMATED 224 10^3/uL (150-450); WHITE BLOOD COUNT 11.7 10^3/uL (4.0-10.0)
[2019-01-12 13:06] LABS: ALBUMIN 4.3 GM/DL (3.2-5.2); ALT/SGPT 25 U/L (12-78); BILIRUBIN,TOTAL 0.6 MG/DL (0.2-1.0); BLOOD UREA NITROGEN 13 MG/DL (7-18); CALCIUM LEVEL 9.8 MG/DL (8.5-10.1); CARBON DIOXIDE LEVEL 24 MEQ/L (21-32); CHLORIDE LEVEL 104 MEQ/L (98-107); CHOLESTEROL LEVEL 208 MG/DL (<200); CHOLESTEROL RISK RATIO 7.172 (<5); CREATININE FOR GFR 0.88 MG/DL (0.70-1.30); FREE T4 0.93 NG/DL (0.76-1.46); GLOMERULAR FILTRATION RATE > 60.0 (>56); GLUCOSE, FASTING 119 MG/DL (70-100); HDL CHOLESTEROL 29 MG/DL (>40); LDL CHOLESTEROL 135 MG/DL (<100); NON-HDL-C 179 MG/DL; POTASSIUM SERUM 4.4 MEQ/L (3.5-5.1); SODIUM LEVEL 135 MEQ/L (136-145); THYROID STIMULATING HORMONE 0.781 uIU/ML (0.358-3.740); TOTAL 25(OH) VITAMIN D 10.4 NG/ML (30.0-100.0); TOTAL PROTEIN 7.7 GM/DL (6.4-8.2); TRIGLYCERIDES LEVEL 219 MG/DL (<150); VALPROIC ACID (DEPAKOTE) 29.8 UG/ML (50.0-100.0)
[2019-01-14 14:11] LABS: LAMOTRIGINE (LAMICTAL) None Detected ug/mL (2.0-20.0); Lyme Disease IgG Ab 18 kDa Ban Absent (.); Lyme Disease IgG Ab 23 kDa Ban Absent (.); Lyme Disease IgG Ab 28 kDa Ban Absent (.); Lyme Disease IgG Ab 30 kDa Ban Absent (.); Lyme Disease IgG Ab 39 kDa Ban Absent (.); Lyme Disease IgG Ab 41 kDa Ban Absent (.); Lyme Disease IgG Ab 45 kDa Ban Absent (.); Lyme Disease IgG Ab 58 kDa Ban Absent (.); Lyme Disease IgG Ab 66 kDa Ban Absent (.); Lyme Disease IgG Ab 93 kDa Ban Absent (.); Lyme Disease IgG West Blot Int Negative (.); Lyme Disease IgG/IgM Antibodie <0.91 ISR (0.00-0.90); Lyme Disease IgM Ab 23 kDa Ban Present (.); Lyme Disease IgM Ab 39 kDa Ban Absent (.); Lyme Disease IgM Ab 41 kDa Ban Absent (.); Lyme Disease IgM Ab Quantitati 0.97 index (0.00-0.79); Lyme Disease IgM West Blot Int Negative (.)
== END ==
LOC: M LAB REF 12:02
PROVIDERS: ATTEND Family Medicine
DX: Z13.228 Encounter for screening for other metabolic disorders (principal); Z12.5 Encounter for screening for malignant neoplasm of prostate; R56.9 Unspecified convulsions; Z79.899 Other long term (current) drug therapy
CPT/HCPCS: 80053; 80061; 80164; 80175; 81001; 82306; 83036; 84439; 84443; 85025; 86617; G0103

== ENCOUNTER → 2019-04-13 | Outpatient (REF) | payer MEDICARE, MEDICAID ==
[~2019-04-13] MED LIST changes: +HYDR1TAB33 PO; -HYDRO50TAB PO; -OMEP40CA2 PO; +OMEP40CA97 PO; -TRAZ-160 PO; +TRAZ-252 PO; -TRAZ10TA PO; +TRAZ1TAB10 PO; +TRAZ1TAB12 PO; -TRAZO50TA PO
[2019-04-13 14:26] LABS: ALBUMIN 3.9 GM/DL (3.2-5.2); ALT/SGPT 24 U/L (12-78); BILIRUBIN,TOTAL 0.6 MG/DL (0.2-1.0); BLOOD UREA NITROGEN 13 MG/DL (7-18); CALCIUM LEVEL 10.1 MG/DL (8.5-10.1); CARBON DIOXIDE LEVEL 30 MEQ/L (21-32); CHLORIDE LEVEL 104 MEQ/L (98-107); CHOLESTEROL LEVEL 201 MG/DL (<200); CHOLESTEROL RISK RATIO 6.281 (<5); GLOMERULAR FILTRATION RATE > 60.0 (>56); GLUCOSE, FASTING 103 MG/DL (70-100); HDL CHOLESTEROL 32 MG/DL (>40); LDL CHOLESTEROL 119 MG/DL (<100); NON-HDL-C 169 MG/DL; POTASSIUM SERUM 4.6 MEQ/L (3.5-5.1); SODIUM LEVEL 138 MEQ/L (136-145); TOTAL PROTEIN 7.5 GM/DL (6.4-8.2); TRIGLYCERIDES LEVEL 250 MG/DL (<150)
[2019-04-13 14:35] LABS: HEMOGLOBIN A1c 5.7 %
== END ==
LOC: M LAB REF 13:19
PROVIDERS: ATTEND Family Medicine
DX: R73.03 Prediabetes (principal); E78.5 Hyperlipidemia, unspecified

== ENCOUNTER 2022-08-01 00:20 | Emergency (ER) | payer MEDICARE, MEDICAID ==
[~2022-08-01] VITALS: Ht 175.3 cm; Wt 95.4 kg
[~2022-08-01 00:20] MED LIST changes: -AMLO10TA5 PO; +AMLO1TAB25 PO; -DULE200A INH; -FLUO20CA19 PO; +FLUO20CA22 PO; +LISI10TA22 PO; -LISI10TA4 PO; +MOME13HF7 INH; -MONT10TA2 PO; +MONT10TA97 PO; +OMEP40CA4 PO; -OMEP40CA97 PO; -TAB-TAB PO; +TAB-TAB2 PO
[2022-08-01 01:25] LABS: BASO # 0.1 10^3/uL (0.0-0.2); BASO % 0.7 % (0.0-1.0); EOS # 0.4 10^3/uL (0.0-0.5); EOS % 3.2 % (0.0-3.0); HEMATOCRIT 44.6 % (42.0-52.0); HEMOGLOBIN 15.1 g/dl (13.5-17.5); LYMPH # 6.3 10^3/uL (1.5-5.0); LYMPH % 46.5 % (24.0-44.0); MEAN CORPUSCULAR HEMOGLOBIN 33.9 pg (27.0-33.0); MEAN CORPUSCULAR HGB CONC 33.9 g/dl (32.0-36.5); MEAN CORPUSCULAR VOLUME 100.2 fl (80.0-96.0); MONO # 0.9 10^3/uL (0.0-0.8); MONO % 6.8 % (2.0-8.0); NEUTROPHILS # 5.8 10^3/uL (1.5-8.5); NEUTROPHILS % 42.5 % (36.0-66.0); PLATELET COUNT, AUTOMATED 238 10^3/uL (150-450); RED BLOOD COUNT 4.45 10^6/uL (4.30-6.10); WHITE BLOOD COUNT 13.6 10^3/uL (4.0-10.0)
[2022-08-01 01:45] LABS: BLOOD UREA NITROGEN 10 MG/DL (7-18); CARBON DIOXIDE LEVEL 23 MEQ/L (21-32); CHLORIDE LEVEL 106 MEQ/L (98-107); CREATININE FOR GFR 0.92 MG/DL (0.70-1.30); ETHYL ALCOHOL (ETHANOL) 0.262 % (0.000-0.010); GLOMERULAR FILTRATION RATE > 60.0 (>56); GLUCOSE, FASTING 92 MG/DL (70-100); SODIUM LEVEL 137 MEQ/L (136-145)
[2022-08-01 01:52] LABS: RSV AMPLIFICATION NEGATIVE (NEGATIVE)
[2022-08-01 01:53] LABS: CK-MB VALUE MASS 2.9 NG/ML (<3.6); MB/CK RELATIVE INDEX 2.44 (< OR =4)
[2022-08-01] MEDS ORDERED: ACETAMINOPHEN TAB 650MG DOSE (2X325MG) PO ONE (02:05)
[2022-08-01 02:25] LABS: AMPHETAMINES LEVEL URINE NEGATIVE (NEGATIVE); BARBITURATES URINE NEGATIVE (NEGATIVE); BENZODIAZEPINES URINE NEGATIVE (NEGATIVE); CANNABINOIDS URINE POSITIVE (NEGATIVE); COCAINE METABOLITE URINE NEGATIVE (NEGATIVE); METHADONE URINE NEGATIVE (NEGATIVE); OPIATES URINE NEGATIVE (NEGATIVE); PHENCYCLIDINE URINE NEGATIVE (NEGATIVE)
[2022-08-01] MEDS ORDERED: lamoTRIgine 25MG TAB PO ONE (03:00)
[2022-08-01 11:15] VITALS: BP 138/79
[2022-08-02] MEDS ORDERED: UNRESOLVED CLARIFICATION ENTRY XX SCH (00:01)
== END 2022-08-01 12:07 | disposition home or self-care (01) ==
LOC: M ED 00:20
DX: F10.129 Alcohol abuse with intoxication, unspecified (principal); S01.512A Laceration without foreign body of oral cavity, initial encounter; W10.9XXA Fall (on) (from) unspecified stairs and steps, initial encounter; Y92.009 Unspecified place in unspecified non-institutional (private) residence as the place of occurrence of the external cause; G40.909 Epilepsy, unspecified, not intractable, without status epilepticus; I48.91 Unspecified atrial fibrillation; M48.02 Spinal stenosis, cervical region; J34.9 Unspecified disorder of nose and nasal sinuses; F17.200 Nicotine dependence, unspecified, uncomplicated; Z88.6 Allergy status to analgesic agent; Z88.5 Allergy status to narcotic agent; Z88.8 Allergy status to other drugs, medicaments and biological substances; Z79.51 Long term (current) use of inhaled steroids; Z79.899 Other long term (current) drug therapy

== ENCOUNTER 2022-09-23 18:03 | Emergency (ER) | payer MEDICARE, MEDICAID ==
[~2022-09-23] VITALS: Ht 172.7 cm; Wt 86.4 kg
[2022-09-23] MEDS ORDERED: FLUT1BLS2 (18:24)
[2022-09-24 09:10] LABS: BASO # 0.1 10^3/uL (0.0-0.2); BASO % 0.5 % (0.0-1.0); EOS # 0.2 10^3/uL (0.0-0.5); EOS % 1.3 % (0.0-3.0); HEMATOCRIT 51.6 % (42.0-52.0); HEMOGLOBIN 17.8 g/dl (13.5-17.5); LYMPH # 3.2 10^3/uL (1.5-5.0); LYMPH % 18.7 % (24.0-44.0); MEAN CORPUSCULAR HEMOGLOBIN 33.5 pg (27.0-33.0); MEAN CORPUSCULAR HGB CONC 34.5 g/dl (32.0-36.5); MEAN CORPUSCULAR VOLUME 97.2 fl (80.0-96.0); MONO # 1.1 10^3/uL (0.0-0.8); MONO % 6.4 % (2.0-8.0); NEUTROPHILS # 12.3 10^3/uL (1.5-8.5); NEUTROPHILS % 72.7 % (36.0-66.0); PLATELET COUNT, AUTOMATED 251 10^3/uL (150-450); RED BLOOD COUNT 5.31 10^6/uL (4.30-6.10)
[2022-09-24 09:34] LABS: ETHYL ALCOHOL (ETHANOL) 0.006 % (0.000-0.010)
[2022-09-24] MEDS ORDERED: LIDOCAINE 5% (LIDODERM) PATCH TD ONE (09:35)
[2022-09-24] MEDS ORDERED: methylPREDNISolone 125MG 2ML VIAL IV ONE (09:35)
[2022-09-24] MEDS ORDERED: diazePAM 10MG/2ML SYRINGE IV ONE (09:35)
[2022-09-24] MEDS ORDERED: NS 1,000 ML IV ONE (09:35)
[2022-09-24 09:36] LABS: BLOOD UREA NITROGEN 20 MG/DL (9-23); CALCIUM LEVEL 10.2 MG/DL (8.5-10.1); CARBON DIOXIDE LEVEL 24 MMOL/L (20-31); CHLORIDE LEVEL 101 MMOL/L (98-107); CREATININE FOR GFR 1.05 MG/DL (0.70-1.30); GLOMERULAR FILTRATION RATE > 60.0 (>56); GLUCOSE, FASTING 68 MG/DL (60-100); POTASSIUM SERUM 4.9 MMOL/L (3.5-5.1); SODIUM LEVEL 134 MMOL/L (136-145)
[2022-09-24 10:46] LABS: APPEARANCE, URINE MANUAL CLEAR (CLEAR)
[2022-09-24 10:47] LABS: COLOR, URINE MANUAL YELLOW (YELLOW)
[2022-09-24 10:48] LABS: BILIRUBIN, URINE MANUAL NEGATIVE (NEGATIVE); BLOOD URINE MANUAL TRACE (NEGATIVE); GLUCOSE, URINE (UA) MANUAL NEGATIVE (NEGATIVE); KETONE, URINE MANUAL 1+ mg/dL (NEGATIVE); NITRITE, URINE MANUAL NEGATIVE (NEGATIVE); PROTEIN, URINE MANUAL TRACE mg/dL (NEGATIVE); SPECIFIC GRAVITY,URINE MANUAL 1.015 (1.002-1.035); UROBILINOGEN, URINE MANUAL NORMAL (NORMAL)
[2022-09-24] MEDS ORDERED: METOPROLOL TART 25 MG TABLET PO ONE (10:50)
[2022-09-24 10:56] LABS: BACTERIA, URINE SMALL AMOUNT; HYALINE CAST, URINE NONE SEEN /lpf (0-1); LEUKOCYTE ESTERASE, URINE MAN NEGATIVE (NEGATIVE); RBC, URINE 0-1 /hpf (0-3); SQUAMOUS EPITHELIAL CELL URINE SMALL AMOUNT /hpf (SMALL AMT); WBC, URINE 0-1 /hpf (0-3)
[2022-09-24 11:44] VITALS: BP 135/79
[2022-09-24 11:49] VITALS: BP 135/79
[2022-09-24] MEDS ORDERED: ASPE4PAD TOP (12:24)
[2022-09-24] MEDS ORDERED: MEDR4PAK PO (12:24)
[2022-09-24] MEDS ORDERED: METH-1165 PO (12:24)
[2022-09-24 14:07] LABS: AMPHETAMINES LEVEL URINE NEGATIVE (NEGATIVE); BARBITURATES URINE NEGATIVE (NEGATIVE); BENZODIAZEPINES URINE NEGATIVE (NEGATIVE); COCAINE METABOLITE URINE NEGATIVE (NEGATIVE); METHADONE URINE NEGATIVE (NEGATIVE); OPIATES URINE NEGATIVE (NEGATIVE); PHENCYCLIDINE URINE NEGATIVE (NEGATIVE)
[2022-09-24 14:10] LABS: CANNABINOIDS URINE POSITIVE (NEGATIVE)
== END 2022-09-24 12:57 | disposition home or self-care (01) ==
LOC: M ED 18:03
DX: M54.50 Low back pain, unspecified (principal); D72.829 Elevated white blood cell count, unspecified; I10 Essential (primary) hypertension; E78.5 Hyperlipidemia, unspecified; J44.9 Chronic obstructive pulmonary disease, unspecified; G40.89 Other seizures; F17.200 Nicotine dependence, unspecified, uncomplicated; Z88.1 Allergy status to other antibiotic agents; Z88.5 Allergy status to narcotic agent; Z88.6 Allergy status to analgesic agent; Z88.8 Allergy status to other drugs, medicaments and biological substances; Z79.52 Long term (current) use of systemic steroids; Z79.899 Other long term (current) drug therapy; Z79.811 Long term (current) use of aromatase inhibitors
CPT/HCPCS: 71046; 72110; 80048; 80307; 81000; 81015; 82077; 83605; 85025; 96361; 96374; 96375; 99284; J2930; J3360

== ENCOUNTER 2023-01-06 23:29 | Emergency (ER) | payer MEDICARE, MEDICAID ==
[~2023-01-06] VITALS: Ht 170.2 cm; Wt 94.1 kg
[~2023-01-06 23:29] MED LIST changes: +ASPE4PAD TOP; +FLUT1BLS2; +MEDR4PAK PO; +METH-1165 PO; +MONT-5 PO; -SING10TA32 PO
[2023-01-07] MEDS ORDERED: methylPREDNISolone 125MG 2ML VIAL IV ONE (00:05)
[2023-01-07] MEDS ORDERED: ALBUTEROL SULFATE 2.5MG/0.5ML INH NEB SOLN NEB PRN (00:05)
[2023-01-07 00:37] LABS: ABG BASE EXCESS -5.1 (-2.0-2.0); ABG HCO3 18.2 MEQ/L (22.0-26.0); ABG O2 SATURATION 98.1 % (95.0-99.0); ABG PARTIAL PRESSURE CO2 29.7 mmHg (35.0-45.0); ABG PARTIAL PRESSURE O2 109.9 mmHg (75.0-100.0); ABG STANDARD HCO3 20.4 MEQ/L (22.0-26.0); ABG TOTAL CO2 19.1 MEQ/L (22.0-29.0); ABG pH (ARTERIAL) 7.405 UNITS (7.350-7.450)
[2023-01-07 01:12] LABS: RSV AMPLIFICATION NEGATIVE (NEGATIVE)
[2023-01-07 01:17] LABS: BASO # 0.1 10^3/uL (0.0-0.2); BASO % 0.7 % (0.0-1.0); EOS # 0.3 10^3/uL (0.0-0.5); EOS % 2.6 % (0.0-3.0); HEMATOCRIT 44.1 % (42.0-52.0); HEMOGLOBIN 15.3 g/dl (13.5-17.5); LYMPH # 5.3 10^3/uL (1.5-5.0); LYMPH % 53.3 % (24.0-44.0); MEAN CORPUSCULAR HEMOGLOBIN 34.2 pg (27.0-33.0); MEAN CORPUSCULAR HGB CONC 34.7 g/dl (32.0-36.5); MEAN CORPUSCULAR VOLUME 98.4 fl (80.0-96.0); MONO # 0.9 10^3/uL (0.0-0.8); MONO % 8.9 % (2.0-8.0); NEUTROPHILS # 3.4 10^3/uL (1.5-8.5); NEUTROPHILS % 34.3 % (36.0-66.0); PLATELET COUNT, AUTOMATED 212 10^3/uL (150-450); RED BLOOD COUNT 4.48 10^6/uL (4.30-6.10); WHITE BLOOD COUNT 9.9 10^3/uL (4.0-10.0)
[2023-01-07 01:26] LABS: ALBUMIN 3.7 G/DL (3.2-5.2); ALKALINE PHOSPHATASE 96 U/L (46-116); ALT/SGPT 72 U/L (7.0-40); AST/SGOT 55 U/L (<34); BILIRUBIN,DIRECT 0.1 MG/DL (<0.4); BILIRUBIN,TOTAL 0.4 MG/DL (0.3-1.2); BLOOD UREA NITROGEN 14 MG/DL (9-23); CALCIUM LEVEL 9.1 MG/DL (8.5-10.1); CARBON DIOXIDE LEVEL 22 MMOL/L (20-31); CHLORIDE LEVEL 105 MMOL/L (98-107); CK-MB VALUE MASS 3.5 NG/ML (<3.6); CREATININE FOR GFR 0.83 MG/DL (0.70-1.30); GLOMERULAR FILTRATION RATE > 60.0 (>56); GLUCOSE, FASTING 100 MG/DL (60-100); POTASSIUM SERUM 4.1 MMOL/L (3.5-5.1); SODIUM LEVEL 137 MMOL/L (136-145); TOTAL PROTEIN 6.6 G/DL (5.7-8.2)
[2023-01-07 01:27] LABS: THYROID STIMULATING HORMONE 2.225 uIU/ML (0.55-4.78)
[2023-01-07 01:29] LABS: CPK CREATINE PHOSPHOKINASE 155 U/L (46-171); MB/CK RELATIVE INDEX 2.25 (< OR =4)
[2023-01-07 02:31] LABS: CK-MB VALUE MASS 3.3 NG/ML (<3.6)
[2023-01-07 03:13] LABS: MB/CK RELATIVE INDEX 2.32 (< OR =4)
[2023-01-07] MEDS ORDERED: VENTAER INH (03:34)
[2023-01-07] MEDS ORDERED: ADV250INH INH (03:34)
[2023-01-07] MEDS ORDERED: PRED20TA PO (03:35)
[2023-01-07 04:15] VITALS: BP 178/84
== END 2023-01-07 04:26 | disposition home or self-care (01) ==
LOC: EDBD 23:29 → M ED 23:29
DX: J44.1 Chronic obstructive pulmonary disease with (acute) exacerbation (principal); I48.91 Unspecified atrial fibrillation; I10 Essential (primary) hypertension; E78.5 Hyperlipidemia, unspecified; G40.909 Epilepsy, unspecified, not intractable, without status epilepticus; F17.200 Nicotine dependence, unspecified, uncomplicated; Z79.899 Other long term (current) drug therapy; Z88.8 Allergy status to other drugs, medicaments and biological substances; Z88.5 Allergy status to narcotic agent; Z88.6 Allergy status to analgesic agent
CPT/HCPCS: 71045; 80048; 80076; 82550; 82553; 82803; 83880; 84443; 84484; 85025; 87631; 93005; 93041; 94760; 96374; 99285; J2930

== ENCOUNTER 2023-03-11 21:15 | Inpatient (IN) | payer MEDICARE, MEDICAID ==
[~2023-03-11] VITALS: Ht 170.2 cm; Wt 102.1 kg
[~2023-03-11 21:15] MED LIST changes: +PRED20TA PO
[2023-03-11] MEDS ORDERED: levETIRAcetam INJection 1,500 MG in D5W 100 ML IV ONE (21:25)
[2023-03-11] MEDS ORDERED: NS 1,000 ML IV ONE (21:25)
[2023-03-11 21:35] LABS: ABG BASE EXCESS -4.7 (-2.0-2.0); ABG O2 SATURATION 93.8 % (95.0-99.0); ABG PARTIAL PRESSURE CO2 41.1 mmHg (35.0-45.0); ABG PARTIAL PRESSURE O2 76.1 mmHg (75.0-100.0); ABG STANDARD HCO3 20.6 MMOL/L. (22.0-26.0); ABG TOTAL CO2 22.3 MMOL/L (22.0-29.0); ABG pH (ARTERIAL) 7.327 UNITS (7.350-7.450)
[2023-03-11 21:45] LABS: BASO # 0.1 10^3/uL (0.0-0.2); BASO % 0.7 % (0.0-1.0); EOS # 0.5 10^3/uL (0.0-0.5); EOS % 3.4 % (0.0-3.0); HEMOGLOBIN 16.1 g/dl (13.5-17.5); LYMPH # 5.5 10^3/uL (1.5-5.0); LYMPH % 40.4 % (24.0-44.0); MEAN CORPUSCULAR HEMOGLOBIN 33.9 pg (27.0-33.0); MEAN CORPUSCULAR VOLUME 96.8 fl (80.0-96.0); MONO % 7.2 % (2.0-8.0); NEUTROPHILS # 6.5 10^3/uL (1.5-8.5); PLATELET COUNT, AUTOMATED 206 10^3/uL (150-450); RED BLOOD COUNT 4.75 10^6/uL (4.30-6.10); WHITE BLOOD COUNT 13.6 10^3/uL (4.0-10.0)
[2023-03-11 22:11] LABS: ETHYL ALCOHOL (ETHANOL) 0.233 % (0.000-0.010)
[2023-03-11 22:12] LABS: ACETAMINOPHEN LEVEL < 2.0 UG/ML (10.0-20.0); ALBUMIN 3.6 G/DL (3.2-5.2); ALKALINE PHOSPHATASE 95 U/L (46-116); ALT/SGPT 57 U/L (7.0-40); AST/SGOT 32 U/L (<34); BILIRUBIN,DIRECT 0.1 MG/DL (<0.4); BILIRUBIN,TOTAL 0.4 MG/DL (0.3-1.2); BLOOD UREA NITROGEN 13 MG/DL (9-23); CALCIUM LEVEL 9.3 MG/DL (8.5-10.1); CARBON DIOXIDE LEVEL 24 MMOL/L (20-31); CHLORIDE LEVEL 99 MMOL/L (98-107); CK-MB VALUE MASS 1.6 NG/ML (<3.6); CREATININE FOR GFR 0.87 MG/DL (0.70-1.30); GLOMERULAR FILTRATION RATE > 60.0 (>56); GLUCOSE, FASTING 97 MG/DL (60-100); POTASSIUM SERUM 4.1 MMOL/L (3.5-5.1); SALICYLATE LEVEL < 3.0 MG/DL (<30); SODIUM LEVEL 132 MMOL/L (136-145); TOTAL PROTEIN 6.6 G/DL (5.7-8.2)
[2023-03-11 22:13] LABS: OSMOLALITY SERUM 330 MOSM/KG (275-295)
[2023-03-11 22:14] LABS: THYROID STIMULATING HORMONE 1.403 uIU/ML (0.55-4.78)
[2023-03-11 22:16] LABS: CPK CREATINE PHOSPHOKINASE 109 U/L (46-171); MB/CK RELATIVE INDEX 1.46 (< OR =4)
[2023-03-11 22:20] LABS: AMPHETAMINES LEVEL URINE NEGATIVE (NEGATIVE); BARBITURATES URINE NEGATIVE (NEGATIVE); BENZODIAZEPINES URINE NEGATIVE (NEGATIVE); COCAINE METABOLITE URINE NEGATIVE (NEGATIVE); METHADONE URINE NEGATIVE (NEGATIVE); OPIATES URINE NEGATIVE (NEGATIVE); PHENCYCLIDINE URINE NEGATIVE (NEGATIVE)
[2023-03-11 22:22] LABS: CANNABINOIDS URINE POSITIVE (NEGATIVE)
[2023-03-11 23:50] LABS: CK-MB VALUE MASS 1.1 NG/ML (<3.6); MB/CK RELATIVE INDEX 1.27 (< OR =4)
[2023-03-12] MEDS ORDERED: LORazepam 2 MG TAB PO PRN (03:00)
[2023-03-12] MEDS ORDERED: MOM 30ML SUSPENSION UDC PO PRN (03:00)
[2023-03-12 03:49] VITALS: BP 120/76; TEMP 97.2; O2SAT 98
[2023-03-12 03:54] VITALS: BP 120/76
[2023-03-12] MEDS ORDERED: DOXYCYCLINE HYCLATE 100MG TABLET PO SCH (04:00)
[2023-03-12] MEDS ORDERED: predniSONE 20 MG TAB PO SCH (04:00)
[2023-03-12] MEDS: THIAMINE 100 MG TAB PO SCH ×2 (04:08→07:58)
[2023-03-12] MEDS: IPRATROPIUM 0.5MG/ALBUTEROL 2.5MG INH SOL UD 3ML (DUONEB) NEB SCH ×2 (04:17→07:02)
[2023-03-12] MEDS ORDERED: ACETAMINOPHEN 500 MG TAB PO PRN (05:05)
[2023-03-12] MEDS ORDERED: LAMO25TA4 PO (06:51)
[2023-03-12] MEDS ORDERED: METO25TA4 PO (06:51)
[2023-03-12] MEDS ORDERED: HYDR50TA70 PO (06:51)
[2023-03-12] MEDS ORDERED: ASPI-161 PO (06:51)
[2023-03-12] MEDS ORDERED: FLUO20CA22 PO (06:51)
[2023-03-12] MEDS ORDERED: ATOR80TA59 PO (06:51)
[2023-03-12] MEDS ORDERED: VITA200030 PO (06:51)
[2023-03-12] MEDS ORDERED: CLON-412 PO (06:51)
[2023-03-12] MEDS ORDERED: HOME MED LIST COMPLETE! XX SCH (06:55)
[2023-03-12 07:23] LABS: HEMATOCRIT 49.1 % (42.0-52.0); HEMOGLOBIN 16.8 g/dl (13.5-17.5); MEAN CORPUSCULAR HEMOGLOBIN 33.9 pg (27.0-33.0); MEAN CORPUSCULAR HGB CONC 34.2 g/dl (32.0-36.5); PLATELET COUNT, AUTOMATED 210 10^3/uL (150-450); RED BLOOD COUNT 4.96 10^6/uL (4.30-6.10); WHITE BLOOD COUNT 8.2 10^3/uL (4.0-10.0)
[2023-03-12 07:56] LABS: ALBUMIN 3.7 G/DL (3.2-5.2); ALKALINE PHOSPHATASE 105 U/L (46-116); ALT/SGPT 69 U/L (7.0-40); AST/SGOT 37 U/L (<34); BILIRUBIN,TOTAL 0.6 MG/DL (0.3-1.2); BLOOD UREA NITROGEN 12 MG/DL (9-23); CALCIUM LEVEL 9.4 MG/DL (8.5-10.1); CARBON DIOXIDE LEVEL 21 MMOL/L (20-31); CHLORIDE LEVEL 105 MMOL/L (98-107); CREATININE FOR GFR 0.73 MG/DL (0.70-1.30); GLOMERULAR FILTRATION RATE > 60.0 (>56); GLUCOSE, FASTING 123 MG/DL (60-100); MAGNESIUM LEVEL 1.5 MG/DL (1.8-2.4); POTASSIUM SERUM 4.6 MMOL/L (3.5-5.1); SODIUM LEVEL 134 MMOL/L (136-145)
[2023-03-12 08:00] VITALS: BP 130/82
[2023-03-12] MEDS ORDERED: METOPROLOL TART 25 MG TABLET PO ONE (08:00)
[2023-03-12] MEDS ORDERED: SYMBICORT 160/4.5MCG INHALER 6GM INH SCH (08:00)
[2023-03-12] MEDS: METOPROLOL 5 MG/5 ML VIAL IV SCH ×3 (08:01→08:40)
[2023-03-12 08:40] VITALS: BP 128/78
[2023-03-12] MEDS ORDERED: FUROSEMIDE 100MG/10ML VIAL IV ONE (08:50)
[2023-03-12] MEDS ORDERED: levETIRAcetam INJection 1,000 MG in D5W 100 ML IV SCH (09:00)
[2023-03-12] MEDS ORDERED: APIXABAN 5 MG TAB (ELIQUIS) PO SCH (09:00)
[2023-03-12] MEDS ORDERED: FLUoxetine 20MG CAP PO SCH (09:00)
[2023-03-12] MEDS ORDERED: FOLIC ACID 1MG TAB PO SCH (09:00)
[2023-03-12] MEDS ORDERED: lamoTRIgine 25MG TAB PO SCH (09:00)
[2023-03-12] MEDS ORDERED: MULTIVITAMINS/MINERALS THERAP 1 TAB PO SCH (09:00)
[2023-03-12] MEDS ORDERED: ASPIRIN 81MG ENTERIC TABLET PO SCH (09:00)
[2023-03-12] MEDS ORDERED: MONTELUKAST 10 MG TAB PO SCH (09:00)
[2023-03-12 09:06] VITALS: BP 128/72; O2SAT 98
[2023-03-12 09:41] VITALS: TEMP 98.4
[2023-03-12] MEDS ORDERED: DOXY100T PO (10:58)
[2023-03-12] MEDS ORDERED: PRED20TA PO (10:58)
[2023-03-12] MEDS ORDERED: LASI20TA3 PO (10:58)
[2023-03-12] MEDS ORDERED: ELIQ5TAB PO (10:58)
[2023-03-12] MEDS ORDERED: METO50TA7 PO (10:58)
[2023-03-12] MEDS ORDERED: VENTAER INH (11:27)
[2023-03-12] MEDS ORDERED: ADV250INH INH (11:28)
[2023-03-12] MEDS ORDERED: METOPROLOL TART 25 MG TABLET PO SCH (12:00)
[2023-03-12] MEDS ORDERED: HEPARIN SOD (PORCINE) 5000UNITS/ML 1ML VIAL/SYRINGE SC SCH (14:00)
[2023-03-12] MEDS ORDERED: ATORVASTATIN 20 MG TAB PO SCH (21:00)
== END 2023-03-12 11:23 | disposition left against medical advice (07) | DRG 190 ==
LOC: M ED 21:15 → ENRESERV 03-12 00:04 → M ED INP 03-12 02:56 → ENRESERVTM 03-12 03:19 → M PCU 03-12 03:37
PROVIDERS: ADMIT Family Medicine; ATTEND Internal Medicine Nephrology
DX: J44.1 Chronic obstructive pulmonary disease with (acute) exacerbation (principal); G93.41 Metabolic encephalopathy; I48.92 Unspecified atrial flutter; G40.909 Epilepsy, unspecified, not intractable, without status epilepticus; I11.0 Hypertensive heart disease with heart failure; I48.91 Unspecified atrial fibrillation; K21.9 Gastro-esophageal reflux disease without esophagitis; R74.01 Elevation of levels of liver transaminase levels; F31.9 Bipolar disorder, unspecified; E83.42 Hypomagnesemia; J45.909 Unspecified asthma, uncomplicated; E78.5 Hyperlipidemia, unspecified; F10.129 Alcohol abuse with intoxication, unspecified; R00.0 Tachycardia, unspecified; F43.10 Post-traumatic stress disorder, unspecified; F41.1 Generalized anxiety disorder; R60.0 Localized edema; F12.90 Cannabis use, unspecified, uncomplicated; I50.9 Heart failure, unspecified; Z88.8 Allergy status to other drugs, medicaments and biological substances; Z88.6 Allergy status to analgesic agent; Z88.5 Allergy status to narcotic agent; Z79.899 Other long term (current) drug therapy; Z79.82 Long term (current) use of aspirin

== ENCOUNTER 2023-10-04 23:47 | Emergency (ER) | payer MEDICARE, MEDICAID ==
[~2023-10-04 23:47] MED LIST changes: +ASPI-161 PO; +ATOR80TA59 PO; +DOXY100T PO; +ELIQ5TAB PO; +HYDR50TA70 PO; +LAMO25TA4 PO; +LASI20TA3 PO; +METO50TA7 PO; +VITA200030 PO
[2023-10-04] MEDS ORDERED: LORazepam 2 MG/ML 1ML VIAL As Ordered ONE (23:52)
[2023-10-04] MEDS ORDERED: LORazepam 2 MG/ML 1ML VIAL IV STA (23:52)
[2023-10-05] MEDS ORDERED: ISOVUE-370 76% 100ML VIAL As Ordered ONE (01:01)
[2023-10-05 01:59] LABS: VENOUS BASE EXCESS -7.8 (-2.0-2.0); VENOUS HCO3 17.6 MMOL/L (23.0-27.0); VENOUS O2 SATURATION 97.1 % (60.0-80.0); VENOUS PARTIAL PRESSURE CO2 36.2 mmHg (38.0-50.0); VENOUS PARTIAL PRESSURE O2 99.8 mmHg (30.0-50.0); VENOUS PH 7.304 UNITS (7.330-7.430); VENOUS STANDARD HCO3 18.3 MMOL/L; VENOUS TOTAL CO2 18.7 MMOL/L (24.0-28.0)
[2023-10-05 02:22] LABS: BASO # 0.1 10^3/uL (0.0-0.2); BASO % 0.6 % (0.0-1.0); EOS # 0.2 10^3/uL (0.0-0.5); EOS % 1.5 % (0.0-3.0); HEMATOCRIT 45.1 % (42.0-52.0); LYMPH # 3.3 10^3/uL (1.5-5.0); LYMPH % 27.3 % (24.0-44.0); MEAN CORPUSCULAR HEMOGLOBIN 34.6 pg (27.0-33.0); MEAN CORPUSCULAR HGB CONC 35.5 g/dl (32.0-36.5); MEAN CORPUSCULAR VOLUME 97.4 fl (80.0-96.0); MONO # 0.8 10^3/uL (0.0-0.8); MONO % 6.3 % (2.0-8.0); NEUTROPHILS # 7.8 10^3/uL (1.5-8.5); NEUTROPHILS % 63.9 % (36.0-66.0); PLATELET COUNT, AUTOMATED 192 10^3/uL (150-450); RED BLOOD COUNT 4.63 10^6/uL (4.30-6.10); WHITE BLOOD COUNT 12.1 10^3/uL (4.0-10.0)
[2023-10-05 02:27] LABS: AMPHETAMINES LEVEL URINE NEGATIVE (NEGATIVE); BARBITURATES URINE NEGATIVE (NEGATIVE); BENZODIAZEPINES URINE NEGATIVE (NEGATIVE); COCAINE METABOLITE URINE NEGATIVE (NEGATIVE); METHADONE URINE NEGATIVE (NEGATIVE); OPIATES URINE NEGATIVE (NEGATIVE); PHENCYCLIDINE URINE NEGATIVE (NEGATIVE)
[2023-10-05 02:40] LABS: RSV AMPLIFICATION NEGATIVE (NEGATIVE)
[2023-10-05 02:42] LABS: CANNABINOIDS URINE POSITIVE (NEGATIVE)
[2023-10-05] MEDS ORDERED: NS 1,000 ML IV ONE (02:45)
[2023-10-05 04:10] LABS: CK-MB VALUE MASS 1.8 NG/ML (<3.6); ETHYL ALCOHOL (ETHANOL) 0.226 % (0.000-0.010)
[2023-10-05 04:12] LABS: ALBUMIN 3.5 G/DL (3.2-5.2); ALKALINE PHOSPHATASE 79 U/L (46-116); ALT/SGPT 35 U/L (7.0-40); AST/SGOT 43 U/L (<34); BILIRUBIN,DIRECT 0.2 MG/DL (<0.4); BILIRUBIN,TOTAL 0.5 MG/DL (0.3-1.2); BLOOD UREA NITROGEN 8 MG/DL (9-23); CALCIUM LEVEL 8.3 MG/DL (8.3-10.6); CARBON DIOXIDE LEVEL 21 MMOL/L (20-31); CHLORIDE LEVEL 106 MMOL/L (98-107); CREATININE FOR GFR 0.71 MG/DL (0.70-1.30); GLOMERULAR FILTRATION RATE > 60.0 (>49); GLUCOSE, FASTING 115 MG/DL (74-106); MAGNESIUM LEVEL 1.8 MG/DL (1.8-2.4); POTASSIUM SERUM 4.4 MMOL/L (3.5-5.1); SODIUM LEVEL 135 MMOL/L (136-145); TOTAL PROTEIN 6.4 G/DL (5.7-8.2)
[2023-10-05 04:13] LABS: THYROID STIMULATING HORMONE 0.403 uIU/ML (0.55-4.78)
[2023-10-05 04:15] LABS: ACETONE/KETONE 0.12 MMOL/L (0.02-0.27)
[2023-10-05 04:21] LABS: CPK CREATINE PHOSPHOKINASE 115 U/L (46-171); MB/CK RELATIVE INDEX 1.56 (< OR =4)
[2023-10-05] MEDS ORDERED: AMOX875T2 PO (06:07)
[2023-10-05 06:17] VITALS: BP 142/85; TEMP 98.1; O2SAT 98
== END 2023-10-05 07:05 | disposition home or self-care (01) ==
LOC: M ED 23:47
DX: F10.129 Alcohol abuse with intoxication, unspecified (principal); S02.2XXA Fracture of nasal bones, initial encounter for closed fracture; I48.91 Unspecified atrial fibrillation; E11.9 Type 2 diabetes mellitus without complications; I10 Essential (primary) hypertension; K21.9 Gastro-esophageal reflux disease without esophagitis; J44.9 Chronic obstructive pulmonary disease, unspecified; F32.A Depression, unspecified; Z88.5 Allergy status to narcotic agent; Z88.6 Allergy status to analgesic agent; Z88.8 Allergy status to other drugs, medicaments and biological substances; Z79.52 Long term (current) use of systemic steroids; Z79.82 Long term (current) use of aspirin; Z79.01 Long term (current) use of anticoagulants; Z79.811 Long term (current) use of aromatase inhibitors; Z79.899 Other long term (current) drug therapy; Y92.9 Unspecified place or not applicable; Y93.9 Activity, unspecified; Y99.9 Unspecified external cause status
CPT/HCPCS: 70450; 70486; 71275; 72125; 74177; 80048; 80076; 80307; 82010; 82077; 82550; 82553; 82803; 83605; 83735; 84443; 84484; 85025; 87631; 93005; 93041; 94760; 96361; 96374; 99285; J2060; Q9967

== ENCOUNTER 2023-12-27 18:23 | Emergency (ER) | payer MEDICARE, MEDICAID ==
[~2023-12-27] VITALS: Ht 172.7 cm; Wt 91.8 kg
[~2023-12-27 18:23] MED LIST changes: +AMOX875T2 PO; -ASPI-161 PO; +ASPI-615 PO
[2023-12-27] MEDS: MORPHINE 2 MG/ML 1ML VIAL IV ONE (18:35)
[2023-12-27 18:56] LABS: VENOUS BASE EXCESS -6.5 (-2.0-2.0); VENOUS HCO3 19.1 MMOL/L (23.0-27.0); VENOUS O2 SATURATION 80.8 % (60.0-80.0); VENOUS PARTIAL PRESSURE CO2 38.9 mmHg (38.0-50.0); VENOUS PARTIAL PRESSURE O2 48.1 mmHg (30.0-50.0); VENOUS STANDARD HCO3 18.9 MMOL/L; VENOUS TOTAL CO2 20.3 MMOL/L (24.0-28.0)
[2023-12-27] MEDS ORDERED: LORazepam 2 MG/ML 1ML VIAL As Ordered ONE (19:04)
[2023-12-27 19:07] LABS: HEMATOCRIT 47.6 % (42.0-52.0); HEMOGLOBIN 16.7 g/dl (13.5-17.5); MEAN CORPUSCULAR HEMOGLOBIN 34.6 pg (27.0-33.0); MEAN CORPUSCULAR HGB CONC 35.1 g/dl (32.0-36.5); MEAN CORPUSCULAR VOLUME 98.6 fl (80.0-96.0); RED BLOOD COUNT 4.83 10^6/uL (4.30-6.10); WHITE BLOOD COUNT 13.4 10^3/uL (4.0-10.0)
[2023-12-27] MEDS: LORazepam 2 MG/ML 1ML VIAL IV STA (19:07)
[2023-12-27 19:08] LABS: PLATELET COUNT, AUTOMATED 210 10^3/uL (150-450)
[2023-12-27 19:20] LABS: INR 1.09; PARTIAL THROMBOPLASTIN TIME 33.3 SECONDS (24.8-34.2); PROTHROMBIN TIME 13.8 SECONDS (12.5-14.5)
[2023-12-27] MEDS ORDERED: diphenhydrAMINE 50MG/ML VIAL As Ordered ONE (19:27)
[2023-12-27] MEDS: LORazepam 2 MG/ML 1ML VIAL IM ONE (19:29)
[2023-12-27] MEDS: diphenhydrAMINE 50MG/ML VIAL IM ONE (19:29)
[2023-12-27] MEDS: HALOPERIDOL 5MG/ML 1ML VIAL IM ONE (19:29)
[2023-12-27] MEDS: MULTIVITAMIN -ADULT INJECTION 10 ML, THIAMINE INJection 100 MG, FOLIC ACID 1 MG in NS 1... IV ONE (19:30)
[2023-12-27 19:32] LABS: APPEARANCE, URINE CLEAR (CLEAR); BACTERIA, URINE AUTO NEGATIVE (NEGATIVE); BILIRUBIN, URINE AUTO NEGATIVE (NEGATIVE); BLOOD, URINE BLOOD NEGATIVE (NEGATIVE); COLOR, URINE STRAW (YELLOW); GLUCOSE, URINE (UA) AUTO NEGATIVE (NEGATIVE); KETONE, URINE AUTO NEGATIVE (NEGATIVE); LEUKOCYTE ESTERASE, URINE AUTO NEGATIVE (NEGATIVE); NITRITE, URINE AUTO NEGATIVE (NEGATIVE); PROTEIN, URINE AUTO NEGATIVE (NEGATIVE); RBC, URINE AUTO 0 /HPF (0-3); SPECIFIC GRAVITY URINE AUTO 1.004 (1.002-1.035); SQUAMOUS EPITHELIAL CELL UR AU 0 /HPF (0-6); UROBILINOGEN, URINE AUTO 0.2 mg/dL (0.0-2.0); WBC, URINE AUTO 0 /HPF (0-3)
[2023-12-27] MEDS: NS 1,000 ML IV ONE (19:32)
[2023-12-27 19:34] LABS: ETHYL ALCOHOL (ETHANOL) 0.295 % (0.000-0.010); LIPASE 67 U/L (12-53)
[2023-12-27] MEDS: BOOSTRIX VACCINE (TETANUS/DIPHTH/ACEL. PERTUSSIS) 0.5ML SYR IM.IMMUN ONE (19:34)
[2023-12-27 19:35] LABS: AMYLASE 91 U/L (30-118)
[2023-12-27 19:36] LABS: ALBUMIN 3.5 G/DL (3.2-5.2); ALKALINE PHOSPHATASE 82 U/L (46-116); ALT/SGPT 36 U/L (7.0-40); AST/SGOT 22 U/L (<34); BILIRUBIN,DIRECT 0.1 MG/DL (<0.4); BILIRUBIN,TOTAL 0.4 MG/DL (0.3-1.2); BLOOD UREA NITROGEN 14 MG/DL (9-23); CALCIUM LEVEL 9.3 MG/DL (8.3-10.6); CARBON DIOXIDE LEVEL 20 MMOL/L (20-31); CHLORIDE LEVEL 105 MMOL/L (98-107); CK-MB VALUE MASS 2.6 NG/ML (<3.6); CPK CREATINE PHOSPHOKINASE 108 U/L (46-171); CREATININE FOR GFR 0.79 MG/DL (0.70-1.30); GLOMERULAR FILTRATION RATE > 60.0 (>49); GLUCOSE, FASTING 88 MG/DL (74-106); SODIUM LEVEL 131 MMOL/L (136-145); TOTAL PROTEIN 6.6 G/DL (5.7-8.2)
[2023-12-27 19:37] LABS: ATYPICAL LYMPH 27 % (0-5); BASOPHILS 1 % (0-1); EOSINOPHILS 2 % (0-3); LYMPHOCYTES 23 % (16-44); MONOCYTES 6 % (0-5); NEUTROPHILS 41 % (28-66); PLATELET ESTIMATE NORMAL (NORMAL)
[2023-12-27 19:56] LABS: AMPHETAMINES LEVEL URINE NEGATIVE (NEGATIVE); BENZODIAZEPINES URINE NEGATIVE (NEGATIVE)
[2023-12-27 19:57] LABS: BARBITURATES URINE NEGATIVE (NEGATIVE); COCAINE METABOLITE URINE NEGATIVE (NEGATIVE); METHADONE URINE NEGATIVE (NEGATIVE); OPIATES URINE NEGATIVE (NEGATIVE); PHENCYCLIDINE URINE NEGATIVE (NEGATIVE)
[2023-12-27 19:58] LABS: CANNABINOIDS URINE POSITIVE (NEGATIVE)
[2023-12-27 20:41] LABS: SALICYLATE LEVEL < 3.0 MG/DL (<30)
[2023-12-27] MEDS ORDERED: METO50TA7 PO (21:28)
[2023-12-27] MEDS ORDERED: ELIQ5TAB PO (21:28)
[2023-12-27] MEDS ORDERED: HOME MED LIST COMPLETE! XX SCH (21:30)
[2023-12-27 23:17] LABS: HEMATOCRIT 49.4 % (42.0-52.0); MEAN CORPUSCULAR HEMOGLOBIN 34.2 pg (27.0-33.0); MEAN CORPUSCULAR HGB CONC 34.4 g/dl (32.0-36.5); MEAN CORPUSCULAR VOLUME 99.4 fl (80.0-96.0); PLATELET COUNT, AUTOMATED 199 10^3/uL (150-450); RED BLOOD COUNT 4.97 10^6/uL (4.30-6.10)
[2023-12-28] MEDS: LORazepam 2 MG TAB PO PRN (00:29)
[2023-12-28 07:32] VITALS: BP 212/87
[2023-12-28] MEDS: METOPROLOL 5 MG/5 ML VIAL IV SCH (07:32)
[2023-12-28] MEDS: METOPROLOL TART 50 MG TAB PO ONE (07:44)
[2023-12-28] MEDS: ALBUTEROL 90 MCG/ACT 8GM HFA INHALER INH ONE (08:15)
[2023-12-28 09:16] VITALS: BP 187/80; TEMP 98.4; O2SAT 99
[2023-12-28] MEDS ORDERED: METO50TA7 PO (09:19)
[2023-12-28] MEDS ORDERED: LAMI25TA PO (09:20)
[2023-12-28] MEDS ORDERED: ELIQ5TAB PO (09:20)
[2023-12-28] MEDS: FOLIC ACID 1MG TAB PO SCH (09:30)
[2023-12-28] MEDS: THIAMINE 100 MG TAB PO SCH (09:30)
[2023-12-28] MEDS: APIXABAN 5 MG TAB (ELIQUIS) PO ONE (09:30)
[2023-12-28] MEDS: MULTIVITAMINS/MINERALS THERAP 1 TAB PO SCH (09:30)
== END 2023-12-28 09:40 | disposition home or self-care (01) ==
LOC: M ED 18:23
DX: F43.21 Adjustment disorder with depressed mood (principal); I48.91 Unspecified atrial fibrillation; F10.129 Alcohol abuse with intoxication, unspecified; S09.90XA Unspecified injury of head, initial encounter; S02.2XXA Fracture of nasal bones, initial encounter for closed fracture; F10.10 Alcohol abuse, uncomplicated; Z91.199 Patient's noncompliance with other medical treatment and regimen due to unspecified reason; X58.XXXA Exposure to other specified factors, initial encounter; Y92.410 Unspecified street and highway as the place of occurrence of the external cause; Y93.9 Activity, unspecified; Y99.9 Unspecified external cause status; R56.9 Unspecified convulsions; F32.A Depression, unspecified; Z79.899 Other long term (current) drug therapy; Z88.5 Allergy status to narcotic agent; Z88.6 Allergy status to analgesic agent; Z88.8 Allergy status to other drugs, medicaments and biological substances
CPT/HCPCS: 70450; 70486; 71045; 72125; 72128; 72131; 73521; 80048; 80076; 80143; 80307; 81001; 82077; 82150; 82550; 82553; 82803; 83605; 83690; 84484; 85025; 85027; 85610; 85730; 86850; 86900; 86901; 87635; 90471; 90715; 93005; 93041; 94640; 94760; 96365; 96366; 96372; 96375; 99285; J1200; J1630; J2060; J3411

== ENCOUNTER 2024-05-16 13:38 | Emergency (ER) | payer MEDICAID, MEDICARE ==
[~2024-05-16] VITALS: Ht 170.2 cm; Wt 95.2 kg
[~2024-05-16 13:38] MED LIST changes: +FLUO-365 PO; -FLUO20CA22 PO
[2024-05-16 13:53] VITALS: BP 165/92; TEMP 98.2; O2SAT 97
[2024-05-16] MEDS: BOOSTRIX VACCINE (TETANUS/DIPHTH/ACEL. PERTUSSIS) 0.5ML SYR IM ONE (16:36)
[2024-05-16] MEDS ORDERED: LAMO25TA4 PO (16:50)
[2024-05-16] MEDS ORDERED: METO50TA7 PO (16:50)
[2024-05-16] MEDS ORDERED: ELIQ5TAB PO (16:50)
== END 2024-05-16 17:09 | disposition home or self-care (01) ==
LOC: M ED 13:38 → EDBD 13:38 → M ED 17:09
DX: Z76.0 Encounter for issue of repeat prescription (principal); S60.941A Unspecified superficial injury of left index finger, initial encounter; X58.XXXA Exposure to other specified factors, initial encounter; Y92.9 Unspecified place or not applicable; Y93.9 Activity, unspecified; Y99.9 Unspecified external cause status; I25.10 Atherosclerotic heart disease of native coronary artery without angina pectoris; I10 Essential (primary) hypertension; F32.A Depression, unspecified; F17.200 Nicotine dependence, unspecified, uncomplicated; Z79.01 Long term (current) use of anticoagulants; Z79.899 Other long term (current) drug therapy; Z88.5 Allergy status to narcotic agent; Z88.6 Allergy status to analgesic agent; Z88.8 Allergy status to other drugs, medicaments and biological substances

== ENCOUNTER → 2025-04-22 | Outpatient (REF) | payer MEDICARE, MEDICAID ==
[~2025-04-22] MED LIST changes: -ADV250INH; -ADV250INH INH; -ADV500INH INH; +ADVA1AER10 INH; +ADVA1AER9; +ADVA1AER9 INH; +DIVA-41 PO; -DIVA500T94 PO; +LAMO-18 PO; -LAMO25TA4 PO
[2025-04-22 13:27] LABS: ALT/SGPT 31 U/L (7.0-40); AST/SGOT 24 U/L (<34); CALCIUM LEVEL 9.9 MG/DL (8.3-10.6); CARBON DIOXIDE LEVEL 28 MMOL/L (20-31); CHLORIDE LEVEL 102 MMOL/L (98-107); CHOLESTEROL LEVEL 246 MG/DL (<200); CHOLESTEROL RISK RATIO 6.05 (<5); CREATININE FOR GFR 0.92 MG/DL (0.70-1.30); GLOMERULAR FILTRATION RATE > 90.0 (>49); LDL CHOLESTEROL 178.4 MG/DL (<100); NON-HDL-C 205.4 MG/DL; POTASSIUM SERUM 5.7 MMOL/L (3.5-5.1); SODIUM LEVEL 137 MMOL/L (136-145); TRIGLYCERIDES LEVEL 135 MG/DL (<150)
[2025-04-22 14:04] LABS: ESTIMATED AVERAGE GLUCOSE 111.0 MG/DL (60-110)
== END ==
LOC: M LAB REF 12:30
PROVIDERS: ATTEND Student in an Organized Health Care Education/Training Program
DX: E66.9 Obesity, unspecified (principal); Z79.899 Other long term (current) drug therapy